=== PATIENT | male | born 1950 | race Caucasian/White ===

== ENCOUNTER 2021-01-19 06:38 | Outpatient (RCR) | payer MEDICARE, OTHER, SELFPAY | END 2021-01-19 23:59 | LOC: IMMUN 06:38 | PROVIDERS: PCP Family Medicine; Referring Provider Family Medicine; Visit Provider Family Medicine | DX: Z23 Encounter for immunization (principal) | CPT/HCPCS: 0011A; 0012A ==

== ENCOUNTER 2021-02-18 17:57 | Emergency (ER) | payer MEDICARE, OTHER, SELFPAY ==
[2021-02-18 17:59] VITALS: BP 181/63; PULSE 78; RESP 18; TEMP 36.3; O2SAT 96; BMI 75.0
[2021-02-18 18:01] VITALS: BP 181/63; PULSE 78; RESP 18; TEMP 36.3; O2SAT 96
--- NOTE | 2021-02-18 18:15 | CT_ITS ---
STUDY: CT ABDOMEN AND PELVIS WITHOUT CONTRAST REASON FOR EXAM: Male, 70 years old. Hematuria RADIATION DOSAGE (If Supplied By Facility): CTDIvol = ( 18.99 ) mGy, DLP = ( 915.70 ) mGycm TECHNIQUE: Transaxial images were obtained from the dome of the diaphragm to the symphysis pubis without oral contrast, and without intravenous contrast. Sagittal and coronal images were reconstructed. Individualized dose optimization techniques were used for this CT. COMPARISON: None. FINDINGS: The visualized lung bases are unremarkable. The visualized portions of the heart are within normal limits. Normal liver. Normal gallbladder and extrahepatic biliary system. Normal spleen. Normal pancreas. Normal bilateral adrenal glands. Normal right kidney. Multiple nonobstructing uroliths in the left renal calyces. These measure up to 7 mm. Normal visualized stomach. Normal small intestine. Colonic diverticulosis. Increased stool throughout the colon. The appendix is visualized and appears normal. Calcified plaque along the aorta and its branches. Possible severe stenosis right renal artery. Normal inferior vena cava. Normal retroperitoneum. Normal urinary bladder. Bilateral fat-containing inguinal hernias. Normal abdominal wall. Slight anterior wedging T11, T12 and L1. IMPRESSION: Multiple Nonobstructing nephroliths on the left. Multiple mild compression fractures as above, age indeterminate. Electronically Signed: Montana Perry MD at 19:37 EDT , Service support , CT/Abdomen/Pelvis without Cont
--- NOTE | 2021-02-18 18:17 | ED.VISSUMM ---
- ER Visit Summary Date of Service: 02/18/21 Chief Complaint: Hematuria History of Present Illness: The patient is a 70 M who presents with hematuria that began today. Patient states he has a history of kidney stones. Patient states he was told he had 9 kidney stones in the past. Patient states today he noted some blood in his urine. Patient states it has been constant all day. Patient states he did get his second Covid vaccine 2 days ago. Patient states he has been having some body aches with this. Patient also admits to mild headache. Patient denies any dysuria. Patient admits to subjective chills but denies any fevers. Patient denies any nausea or vomiting. Physical Examination: Vital signs are stable. Patient is afebrile. Patient is in no acute distress. Oral mucosa is pink and moist. Neck is supple. Trachea is midline. There is no JVD noted. Heart was regular rate and rhythm. Lungs are clear and equal bilaterally. Abdomen is soft. Bowel sounds are normal. There is no tenderness. There is no rebound or guarding noted. There is no CVA tenderness noted. Skin is warm dry. Cranial nerves II through XII are intact. There are no focal motor or sensory deficits noted. Extremities are intact. There is no calf tenderness or edema. Test Results: CBC was within normal limits. Comprehensive metabolic profile showed a slightly elevated glucose of 140. Total bilirubin was slightly elevated at 1.1. Urinalysis showed occult blood of 250 with greater than 100 red blood cells. There were no white blood cells noted. CT scan of the abdomen pelvis was obtained. There are multiple stones in the left kidney. There is no obstruction. There is no mass. This was interpreted by the radiologist and reviewed by myself. Emergency Department Course and Treatment: Patient was given IV fluids. Patient did not require any analgesia or antiemetics. Patient was resting comfortably on reevaluation. Patient was advised of his findings. Patient was given a referral to Dr. Henderson. Patient will arrange to follow up with him in the office. Patient was instructed to take Tylenol as needed for pain. Patient was instructed return if worse in any way. Patient understood and was agreeable with the plan. All questions were answered. Disposition: Discharge home Impression: 1. Hematuria This note was generated with [employer] dictation software. It may contain incorrect words, spelling, and punctuation that were not noted in review of the chart prior to signing ED Disposition - Plan for ED Patient: Disposition: Home or Assisted Living Diagnosis: Hematuria Instructions: ED Hematuria Referrals: Sonny Duncan MD [Primary Care Provider] - 5-7 Days Randal Henderson MD [STAFF PHYSICIAN] - 5-7 Days
[2021-02-18 18:29] LABS: Mucous, Urine 0 SEEN /hpf (<or=2+); Squamous Epithelial Cells - UA 0 SEEN /hpf (0-5); White Blood Cells 0 SEEN /hpf (0-5)
[2021-02-18] MEDS: 0.9% Normal Saline 1,000 ML 1000 ML IV (18:29)
[2021-02-18 18:35] LABS: Color, Urine Red (Yellow); Glucose, Dipstick Normal (Normal); Ketone-Dipstick 5 mg/dl (Negative); Leukocyte Esterase-Dipstick Negative /ul (Negative); Nitrite-Dipstick Negative (Negative); Occult Blood-Urine 250 /ul (Negative); Protein-Dipstick 100 mg/dl (Negative); Urine Bilirubin Dipstick Negative (Negative); Urine Clarity Cloudy (Clear); Urine Urobilinogen Normal (Normal); Urine pH 6.5 (5.0 - 8.0)
[2021-02-18 18:38] LABS: Absolute Lymphocyte Count 1.54 X10^3/uL (0.83-4.51); Absolute Neutrophil Count 3.5 X10^3/uL (2.0-7.7); Basophil# 0.03 X10^3/uL; Basophil% 0.5 % (0-1); Eosinophil# 0.16 X10^3/uL; Eosinophils% 2.7 % (0-5); Hematocrit 43.5 % (40-54); Hemoglobin 14.4 g/dL (13.0-16.5); Lymphocyte # 1.54 X10^3/ul (4.0); Lymphocyte % 26.2 % (19-41); Mean Corp Hgb Conc 33.1 g/dL (32-36); Mean Corpuscular Hgb 30.4 pg (27.0-32.0); Mean Platelet Vol. 9.7 fl (6.2-12.0); Monocyte# 0.69 X10^3/uL; Monocyte% 11.7 % (0-10); NRBC Flagged by Analyzer 0 % (0-5); Neutrophil # 3.45 X10^3/uL (2.7-7.7); Neutrophil % 58.7 % (47-70); Platelet Count 190 K/mm3 (150-450); RBC Distribution Width CV 13.2 % (11.6-14.6); RBC Distribution Width SD 45.1 fl (35.1-43.9); Red Blood Count 4.73 M/mm3 (4.6-6.2); White Blood Count 5.9 K/mm3 (4.4-11.0)
[2021-02-18 18:54] LABS: Amorphous Sediment 1+; Bacteria 1+ /hpf (None Seen); Red Blood Cells-Urine > 100 SEEN /hpf (0-5)
[2021-02-18 18:59] LABS: ALB/GLOB Ratio 1.2 RATIO (0.9-2.4); AST(SGOT) 24 U/L (15-37); Alanine Aminotransfer ALT/SGPT 35 U/L (16-61); Albumin, Serum 3.7 g/dL (3.2-5.0); Alkaline Phosphatase 96 U/L (45-117); Anion Gap 4 (5-15); BUN 13 mg/dL (7-18); BUN/Creat Ratio 10.9 RATIO (10-20); Calcium,Total 8.7 mg/dL (8.5-10.1); Chloride 105 mmol/L (98-107); Creatinine, Serum 1.19 mg/dL (0.70-1.30); EST Glomerular Filtration Rate 64 mL/min (>60); Est Glom Filt Rate - Afr Amer 77 mL/min (>60); Estimated Creatinine Clearance 56.11 ml/min; Glucose 140 mg/dL (74-106); Protein, Total 6.7 g/dL (6.4-8.2); Sodium Level 139 mmol/L (136-145)
[2021-02-18 20:17] VITALS: BP 178/90; PULSE 78; RESP 18; O2SAT 96
== END 2021-02-18 20:17 | disposition home or self-care (01) ==
PROVIDERS: Emergency Provider Emergency Medicine; PCP Family Medicine
DX: R31.9 Hematuria, unspecified (principal); N20.0 Calculus of kidney; R51.9 Headache, unspecified; Z87.442 Personal history of urinary calculi
CPT/HCPCS: 74176; 80053; 81001; 85025; 96360; 99283; J7030

== ENCOUNTER 2021-02-19 19:05 | Emergency (ER) | payer MEDICARE, OTHER, SELFPAY ==
[2021-02-18 17:59] VITALS: BMI 75.0
[2021-02-19 19:06] VITALS: BP 201/100; PULSE 76; RESP 18; TEMP 35.4; O2SAT 98; BMI 34.2
[2021-02-19 19:56] LABS: Absolute Lymphocyte Count 1.66 X10^3/uL (0.83-4.51); Absolute Neutrophil Count 3.2 X10^3/uL (2.0-7.7); Basophil# 0.02 X10^3/uL; Basophil% 0.3 % (0-1); Eosinophil# 0.18 X10^3/uL; Eosinophils% 3.1 % (0-5); Hematocrit 42.9 % (40-54); Hemoglobin 13.9 g/dL (13.0-16.5); Lymphocyte # 1.66 X10^3/ul (4.0); Lymphocyte % 28.9 % (19-41); Mean Corp Hgb Conc 32.4 g/dL (32-36); Mean Corpuscular Volume 92.7 fL (80-94); Mean Platelet Vol. 9.7 fl (6.2-12.0); Monocyte# 0.64 X10^3/uL; Monocyte% 11.1 % (0-10); NRBC Flagged by Analyzer 0 % (0-5); Neutrophil # 3.23 X10^3/uL (2.7-7.7); Neutrophil % 56.4 % (47-70); Platelet Count 201 K/mm3 (150-450); RBC Distribution Width CV 13.2 % (11.6-14.6); RBC Distribution Width SD 45.1 fl (35.1-43.9); Red Blood Count 4.63 M/mm3 (4.6-6.2); White Blood Count 5.7 K/mm3 (4.4-11.0)
[2021-02-19 19:59] LABS: International Normalized Ratio 0.9; Partial Thromboplast Time 25.3 Seconds (24.1-36.2)
[2021-02-19 20:14] LABS: Erythrocyte Sedimentation Rate 9 mm/hr (0-20)
[2021-02-19 20:16] LABS: AST(SGOT) 25 U/L (15-37); Alanine Aminotransfer ALT/SGPT 37 U/L (16-61); Albumin, Serum 3.2 g/dL (3.2-5.0); Alkaline Phosphatase 108 U/L (45-117); Anion Gap 4 (5-15); BUN 11 mg/dL (7-18); BUN/Creat Ratio 9.9 RATIO (10-20); CRP 7.02 mg/L (0.0-3.0); Calcium,Total 8.2 mg/dL (8.5-10.1); Chloride 106 mmol/L (98-107); Creatinine, Serum 1.11 mg/dL (0.70-1.30); EST Glomerular Filtration Rate 69 mL/min (>60); Est Glom Filt Rate - Afr Amer 84 mL/min (>60); Globulin 3.1 g/dL (2.2-4.2); Glucose 134 mg/dL (74-106); Potassium 3.9 mmol/L (3.5-5.1); Protein, Total 6.3 g/dL (6.4-8.2); Sodium Level 138 mmol/L (136-145)
--- NOTE | 2021-02-19 20:39 | ED.DCSUM_ITS ---
- ER Visit Summary Date of Service: 02/19/21 Chief Complaint: Rash History of Present Illness: The patient is a 70 M presents for a rash in his lower extremities. This involves his shins. He never had this before. Noticed it yesterday. Associated with redness and warmth. He had some chills. Of note, the patient was seen yesterday for hematuria. He had a work-up including CT which was largely unremarkable. He was referred for follow-up as an outpatient with urology. Patient has a history of coronary disease, hypertension, hyperlipidemia. Physical Examination: Blood pressure 201/100. Otherwise vitals unremarkable. Heart regular rate and rhythm. Lungs clear. Abdomen soft and nontender. No masses. Lower extremities show erythema and warmth over his bilateral shins, this is blanching. Skin is intact. He is neurovascular intact distally. Calves are soft and supple. Test Results: CBC unremarkable. Glucose 134, calcium 8.2. Coags normal. CRP 7, ESR 9. Emergency Department Course and Treatment: Patient had a recent COVID-19 injection. He was having urinary bleeding and a rash. This is not typical for ITP. His platelets were normal. I also considered a vasculitis. His CRP was elevated but his ESR was normal. White count was normal. The rest of his exam is unremarkable. Also considered cellulitis. Will cover him with Bactrim and Keflex. He will follow up with urology next week. Return for spreading rash, or any other new symptoms. Nothing to suggest DVT. Calves are soft and supple. The pattern of skin changes are not consistent with a DVT. His pulses are strong and equal. No neurologic symptoms. His abdomen is soft. He had a CT. Prior evaluation for AAA. No aneurysm history. I am not sure what would link his hematuria and his rash, or if they are even related. Follow-up with urology and follow-up with primary care. Return if worse. Treatment Plan: As above Disposition: Discharge Impression: Bilateral leg rash This note was generated with [employer] dictation software. It may contain incorrect words, spelling, and punctuation that were not noted in review of the chart prior to signing ED Disposition - Plan for ED Patient: Referrals: Sonny Duncan MD [Primary Care Provider] -
--- NOTE | 2021-02-19 20:42 | ED.DEP ---
ED Disposition - Plan for ED Patient: Instructions: ED Erythema Prescriptions: Smz/Tmp Ds [Bactrim Ds] 1 tablet PO BID #14 tab Prescription Printed Cephalexin [Keflex] 500 mg PO Q6 7 Days #28 capsule Prescription Printed Referrals: Sonny Duncan MD [Primary Care Provider] -
[2021-02-19] MEDS: Smz/Tmp Ds Tablet 1 TABLET PO (20:57)
[2021-02-19] MEDS: Cephalexin 250 MG Capsule 500 MG PO (20:57)
[2021-02-19 20:59] VITALS: RESP 16
== END 2021-02-19 21:00 | disposition home or self-care (01) ==
LOC: ED 20:02
PROVIDERS: Emergency Provider Emergency Medicine; PCP Family Medicine
DX: R21 Rash and other nonspecific skin eruption (principal); I25.10 Atherosclerotic heart disease of native coronary artery without angina pectoris; I10 Essential (primary) hypertension; E78.5 Hyperlipidemia, unspecified; R31.9 Hematuria, unspecified
CPT/HCPCS: 80053; 85025; 85610; 85652; 85730; 86140; 99284; A4216

== ENCOUNTER 2021-03-13 10:16 | Day surgery (SDC) | payer MEDICARE, OTHER, SELFPAY ==
--- NOTE | 2021-03-06 10:29 | NURSING ---
pt states he received the second Moderna Vaccin on 02/16/21.
[2021-03-13] VITALS (7 sets, daily range): BP systolic 139–174; BP diastolic 72–79; PULSE 55–59; RESP 16; TEMP 36.1–36.4; O2SAT 96–100; BMI 34.2
--- NOTE | 2021-03-13 10:25 | RAD_ITS ---
INDICATION: preop EXAMINATION/TECHNIQUE: X-RAY - XR Abdomen 1 View COMPARISON: None FINDINGS: BOWEL GAS PATTERN: Non-obstructive. No bowel or stomach distention. FREE AIR: Not assessed on a single supine view. ORGANOMEGALY: Not seen. CALCIFICATIONS: Multiple large calcifications overlie the left kidney, largest of which measures 1 cm. LOWER CHEST: No acute pathology. BONES AND SOFT TISSUES: No acute pathology. RAD/Abdomen Single View IMPRESSION: Multiple large calcifications overlie the left kidney, largest of which measures 1 cm. Electronically Signed: King Clayton MD at 17:13 EDT Tel , Service support ,
[2021-03-13] MEDS: Lactated Ringers 1,000 ML 100 ML IV (11:24)
[2021-03-13] MEDS: Cefazolin 2 GM in 0.9% Normal Saline 100 ML IV (12:23)
--- NOTE | 2021-03-13 13:03 | PCM.HP.STD ---
History of Present Illness Date of Admission: 03/13/21 Chief Complaint: Multiple left renal calculi The patient is a 70 year old male with multiple left renal calculi presents for treatment and stent placement Past Medical History Past Medical History (Chronic Problems): Chronic Problems HLD (hyperlipidemia) (Chronic) CAD (coronary artery disease) (Chronic) Benign essential hypertension (Chronic) Allergies No Known Allergies Allergy (Verified 03/13/21 10:50) Home Medications: Ambulatory Orders Medication Instructions Recorded Allopurinol [Zyloprim] 300 mg PO DAILY 03/06/21 Aspirin [Aspirin, Baby] 162 mg PO DAILY@0800 03/06/21 Atorvastatin Calcium 40 mg PO QHS 03/06/21 Cholecalciferol (Vitamin D3) 2,000 unit PO DAILY 03/06/21 [Vitamin D3] Clopidogrel Bisulfate [Clopidogrel] 75 mg PO DAILY 03/06/21 Lisinopril 10 mg PO DAILY 03/06/21 Metoprolol Tartrate 50 mg PO BID 03/06/21 Multivitamin 1 each PO DAILY 03/06/21 [place]-3 Fatty Acids/Fish Oil [Fish 1 each PO DAILY 03/06/21 Oil 1,000 mg Capsule] Ciprofloxacin [Cipro] 500 mg PO BID #6 tab 03/13/21 Hydrocodone Bitart/Apap 5-325 1 tablet PO Q4H PRN PRN 7 Days #20 03/13/21 [[place] 5MG-325MG] tablet Surgical History: coronary bypass surgery Smoking Status: Former smoker Review of Systems Constitutional: Denies: Chills, Fever, Weight Change HEENT: Denies: Head Aches, Sinus Congestion, Sinus Drainage Cardiovascular: Denies: Chest Pain, Palpitations Respiratory: Denies: Cough, Shortness of breath at rest, Sputum production Gastrointestinal: Denies: Abdominal Pain, Nausea, Vomiting Genitourinary: Denies: Dysuria Musculoskeletal: Denies: Joint Pain, Joint Tenderness Skin: Denies: Rash, Wounds Neurological: Denies: Numbness, Tingling, Focal weakness Psychiatric: Denies: Anxiety, Depression, Homicidal Ideations, Suicidal Ideations Hematologic/ Lymphatic: Denies: Easy Bruising, Easy Bleeding VTE Information - Inpt Only VTE Present on Admission: No - Physical Exam Vitals/I&O's: Vital Signs Temp Pulse Resp BP Pulse Ox 97.6 F L 57 L 16 158/75 H 98 03/13/21 10:56 03/13/21 10:56 03/13/21 10:56 03/13/21 10:56 03/13/21 10:56 Oxygen Delivery Method Room Air Weight: 102.058 kg Body Mass Index (BMI) 34.2 General: Alert, Oriented x3, Cooperative HEENT: Atraumatic, PERRLA, EOMI, Normocephalic Neck: Supple, No JVD, Negative Carotid Bruits Lungs: Clear to auscultation, Normal air movement Cardiovascular: Regular rate, No murmurs Abdomen: Bowel Sounds Present, Soft, Non Tender Extremities: No edema, Capillary Refill Less than 3 Seconds Skin: No rashes, No breakdown Musculoskeletal: No Tenderness to Palpation of Joints or Extremities Neurological: Cranial nerves II-XII grossly intact Psych/Mental Status: Normal Affect, Appropriate Current Medications Acetaminophen (Acetaminophen 325 Mg Tablet) 650 mg PO Q4H PRN PRN PRN Reason: Pain Score 1-5 Cefazolin Sodium 2 gm/ Sodium (Chloride) 110 mls @ 150 mls/hr IV PREOP ONE Stop: 03/13/21 13:08 Last Admin: 03/13/21 12:23 Dose: 150 mls/hr Documented by: Lactated Ringer's () 1,000 mls @ 100 mls/hr IV .Q10H [facility] Last Admin: 03/13/21 11:24 Dose: 100 mls/hr Documented by: Lactated Ringer's () 1,000 mls @ 100 mls/hr IV .Q10H [facility] Ketorolac Tromethamine (Ketorolac 15 Mg/Ml Vial) 15 mg IV X1 ONE Stop: 03/13/21 13:01 Metoclopramide HCl (Metoclopramide 10 Mg/2 Ml Vial) 10 mg IV X1 PRN PRN Reason: NAUSEA/VOMITING Ondansetron HCl (Ondansetron 4 Mg/2 Ml Vial) 4 mg IV X1 PRN PRN Reason: NAUSEA Oxycodone HCl (Oxycodone 5 Mg Tablet) 5 - 10 mg PO Q6H PRN PRN PRN Reason: Pain Score 4-10 Assessment/Plan Plan to proceed with shockwave lithotripsy and stent placement
--- NOTE | 2021-03-13 13:04 | DCINST_ITS ---
Discharge Diet: Light diet - advance as tolerated Discharge Activity: Return to Normal Activity Allergies/Adverse Reactions: Allergies No Known Allergies Allergy (Verified 03/13/21 10:50) Medications to take at Discharge Allopurinol [Zyloprim] 300 mg PO DAILY 03/06/21 Aspirin [Aspirin, Baby] 162 mg PO DAILY@0800 03/06/21 Atorvastatin Calcium 40 mg PO QHS 03/06/21 Cholecalciferol (Vitamin D3) [Vitamin D3] 2,000 unit PO DAILY 03/06/21 Clopidogrel Bisulfate [Clopidogrel] 75 mg PO DAILY 03/06/21 Lisinopril 10 mg PO DAILY 03/06/21 Metoprolol Tartrate 50 mg PO BID 03/06/21 Multivitamin 1 each PO DAILY 03/06/21 [place]-3 Fatty Acids/Fish Oil [Fish Oil 1,000 mg Capsule] 1 each PO DAILY 03/06/21 Ciprofloxacin [Cipro] 500 mg PO BID #6 tab 03/13/21 Hydrocodone Bitart/Apap 5-325 [[place] 5MG-325MG] 1 tablet PO Q4H PRN PRN 7 Days #20 tablet 03/13/21 The following prescriptions were given: Ciprofloxacin [Cipro] 500 mg PO BID #6 tab Transmission Status: Pending to [facility] Hydrocodone Bitart/Apap 5-325 [[place] 5MG-325MG] 1 tablet PO Q4H PRN PRN 7 Days #20 tablet PRN Reason: Pain Transmission Status: Sent to [facility] Orders to be completed after discharge: Abdomen Single View [RAD] Time Frame: 03/13/21, Facility: [facility], Location: [facility] Primary Care Physician: Sonny Duncan MD [Primary Care Provider] - Test Results: Test results from this visit will be discussed in further detail at your follow- up appointment, if applicable. Please Follow Up With: Randal Henderson MD When: please call to make an appointment.
--- NOTE | 2021-03-13 13:05 | PCM.OPRPT ---
Report of Operation Date of Procedure: 03/13/21 Pre-Operative Diagnosis: Multiple left renal calculi Post-Operative Diagnosis: Same Surgery/Procedure Performed:: cysto left stent and left ESWL, 1st stage procedure. Description of Surgical Findings:: Patient presents to the hospital for treatment of a kidney stone with shockwave lithotripsy. In the preoperative area and x-ray was done to confirm the location of the stone. The x-ray was reviewed and the stone location was reviewed. In the preoperative setting I spoke with the patient regarding the treatment of the stone how the treatment would be conducted and the expectations after surgery. The patient understands there is a risk of bleeding and infection. Also discussed the very rare risk of hematoma or damage to the kidney. We also discussed the risk that the shockwave machine will fail to break the stone adequately and that the patient may need other surgical procedures. We also discussed the possibility that the patient may need a stent after the procedure. After reviewing the procedure with the patient, the patient is signed the consent form all the patient's questions were addressed and was taken back to the operating room for treatment of a kidney stone. Patient was taken back to the operating room, patient was identified by the nursing staff, we identified the side of the treatment and the patient side of treatment had been marked by my initials. The patient underwent general anesthetic and was placed supine on the lithotripter table. We then used fluoroscopy to identify the stone on the left side. The urethra and genitals were prepped and draped in usual sterile fashion. Using a 21 [place] rigid cystourethroscope the entire length of the urethra was normal then went into the bladder. Identified the trigone the left and right ureteral orifice. I then cannulated the left orifice with an angle tip glide wire and advanced a wire up into the kidney. I then backloaded a 5 [place] open ended catheter over the wire and injected contrast to delineate the anatomy. After the retrograde was performed I then used fluoroscopic images and guidance to advanced a wire up into the kidney and over the 0.038 glidewire I advanced a 6 [place] by 26 cm double pigtail stent. I then pulled the 0.038 Glidewire off and the stent coiled in the kidney bladder good position. The bladder was then drained. We confirmed the position of the stent by fluoroscopy. We then positioned the patient under the lithotripter and we used triangulation technique to identify the location of the stone and then we made sure that the stone was engaged in the F2 focal point of F2 Donier lithoprior machine. Once the patient was positioned appropriately and the stone was identified and placed in the F2 focal point of the lithotripter machine we then proceeded with shockwave lithotripsy. In the beginning the shockwave was delivered at a rate of 90 shocks per minute, we monitor the EKG for any ectopy. The power was slowly increased to 5 kV and subsequently at the 7 kV. We then proceeded with the treatment we move the therapy had around during the treatment to make sure the stone stayed in the F2 focal point during the entire treatment. Once the stone had broken up completely then we stopped the treatment a total of about 3000 shockwaves were delivered to the stone under fluoroscopic guidance. At this point the patient's anesthetic was reversed patient was extubated and taken back to the PACU in stable condition. The patient was given instructions to call the office to make an a follow-up appointment. . Type of Anesthesia:: General Drains: stent left side - Admit VTE Documentation VTE Present on Admission: No VTE Mechan Device Prophylaxis: SCD's
== END 2021-03-13 14:52 | disposition home or self-care (01) ==
LOC: SDC 10:17 → AC 10:20
PROVIDERS: PCP Family Medicine; Referring Provider Urology; Visit Provider Urology
PROC: (CPT 50590; principal; 2021-03-13 12:15)
DX: N20.0 Calculus of kidney (principal); R31.0 Gross hematuria; E78.5 Hyperlipidemia, unspecified; I25.10 Atherosclerotic heart disease of native coronary artery without angina pectoris; I10 Essential (primary) hypertension; Z79.82 Long term (current) use of aspirin; Z95.1 Presence of aortocoronary bypass graft; Z87.891 Personal history of nicotine dependence; Z87.442 Personal history of urinary calculi
CPT/HCPCS: 00873; 50590; 52332; 74018; J7120; C1769; C2617

== ENCOUNTER → 2021-03-19 10:21 | Outpatient (CLI) | payer MEDICARE, OTHER, SELFPAY ==
[2021-03-13 10:56] VITALS: BMI 34.2
--- NOTE | 2021-03-19 10:24 | RAD_ITS ---
STUDY: X-RAY - ABDOMEN/PELVIS REASON FOR EXAM: Male, 70 years old. CALCULUS OF KIDNEY TECHNIQUE: Single AP view of the abdomen / pelvis. COMPARISON: Comparison is made with prior study dated 03/13/2021. FINDINGS: There is a moderate amount of colonic fecal material. A left-sided double J stent catheter as been placed with the proximal tip in the region of the left renal pelvis and distal tip in the bladder. Residual left intrarenal calculi are seen although they are fragmented at this time. Normal soft tissue structures. There are degenerative changes of the visualized lumbar spine. RAD/Abdomen Single View IMPRESSION: Status post left double-J stent catheter insertion. Residual left intrarenal calculi although these have decreased in size and fragmented at this time. Electronically Signed: Hernando Medley MD at 11:04 EDT , Service support ,
[2021-03-19 12:25] LABS: Hematocrit 44.7 % (40-54); Hemoglobin 14.7 g/dL (13.0-16.5); Mean Corp Hgb Conc 32.9 g/dL (32-36); Mean Corpuscular Hgb 30.6 pg (27.0-32.0); Mean Corpuscular Volume 93.1 fL (80-94); Mean Platelet Vol. 9.9 fl (6.2-12.0); Platelet Count 247 K/mm3 (150-450); RBC Distribution Width CV 13.2 % (11.6-14.6); RBC Distribution Width SD 45.3 fl (35.1-43.9); White Blood Count 7.7 K/mm3 (4.4-11.0)
[2021-03-19 12:47] LABS: Anion Gap 5 (5-15); BUN 15 mg/dL (7-18); BUN/Creat Ratio 13.8 RATIO (10-20); Calcium,Total 8.8 mg/dL (8.5-10.1); Chloride 106 mmol/L (98-107); Creatinine, Serum 1.09 mg/dL (0.70-1.30); EST Glomerular Filtration Rate 71 mL/min (>60); Est Glom Filt Rate - Afr Amer 86 mL/min (>60); Glucose 90 mg/dL (74-106); Potassium 4.5 mmol/L (3.5-5.1); Sodium Level 139 mmol/L (136-145)
== END ==
PROVIDERS: PCP Family Medicine; Referring Provider Urology; Visit Provider Urology
DX: Z01.812 Encounter for preprocedural laboratory examination (principal); N20.0 Calculus of kidney
CPT/HCPCS: 36415; 74018; 80048; 85027

== ENCOUNTER → 2021-03-20 14:51 | Outpatient (CLI) | payer MEDICARE, OTHER, SELFPAY ==
[2021-03-13 10:56] VITALS: BMI 34.2
== END ==
PROVIDERS: PCP Family Medicine; Referring Provider Urology; Visit Provider Urology
DX: Z03.818 Encounter for observation for suspected exposure to other biological agents ruled out (principal)
CPT/HCPCS: 87635; C9803; U0002

== ENCOUNTER → 2021-03-24 13:24 | Outpatient (CLI) | payer MEDICARE, OTHER, SELFPAY ==
[2021-03-13 10:56] VITALS: BMI 34.2
--- NOTE | 2021-03-24 13:26 | EKG12_ITS ---
Test Reason : PRE OP Blood Pressure : / mmHG Vent. Rate : 061 BPM Atrial Rate : 061 BPM P-R Int : 170 ms QRS Dur : 104 ms QT Int : 400 ms P-R-T Axes : 065 029 045 degrees QTc Int : 402 ms Normal sinus rhythm Incomplete right bundle branch block Confirmed by BIN LAY, MARITZA ([id number]), copy editor FANI RON ([id number]) on 03/25/2021 9:57:09 AM Referred By: Randal Henderson Confirmed By:RAHEEM STEWARD MD
== END ==
PROVIDERS: PCP Family Medicine; Referring Provider Urology; Visit Provider Urology
DX: Z01.812 Encounter for preprocedural laboratory examination (principal); I10 Essential (primary) hypertension
CPT/HCPCS: 93005

== ENCOUNTER 2021-03-28 15:23 | Observation (INO) | payer OTHER, MEDICARE, SELFPAY ==
[2021-03-13 10:56] VITALS: BMI 34.2
[2021-03-28] VITALS (7 sets, daily range): BP systolic 154–185; BP diastolic 74–96; PULSE 80–96; RESP 15–18; TEMP 36.9–37.2; O2SAT 93–96; BMI 34.4; BMI 34.0
--- NOTE | 2021-03-28 15:43 | EX.ED.DYSGE1 ---
HPI History of Present Illness Chief Complaint: Flank Pain Informant: patient Onset/Context/Timing Onset: Yesterday Context: Gradual Onset Timing: Waxes and wanes Current Severity: Moderate Maximum Severity: Severe Narrative Narrative: Patient presents secondary to left flank pain. He had lithotripsy and stent placed on March 13 here at the hospital. He states he had repeat lithotripsy performed yesterday at the surgery center in [facility]. Both procedures were performed by Dr. Henderson. Patient states he has had increased left flank pain as well as pain from a Avalos catheter that was left in him after yesterday's procedure. He states his blood pressure has been elevated since he was discharged yesterday. He did take Aleve earlier today. He has not taken any narcotics for pain since yesterday. [facility] Medical History Kidney stones Myocardial infarct Home Medications allopurinol 300 mg PO DAILY 03/06/21 [History Last Taken Unknown] aspirin 162 mg PO DAILY@0800 03/06/21 [History Last Taken 03/06/21 08:00] atorvastatin 40 mg PO QHS 03/06/21 [History Last Taken Unknown] cholecalciferol (vitamin D3) 2,000 unit PO DAILY 03/06/21 [History Last Taken Unknown] clopidogrel 75 mg PO DAILY 03/06/21 [History Last Taken 03/06/21 08:00] lisinopril 10 mg PO DAILY 03/06/21 [History Last Taken 03/13/21] metoprolol tartrate 50 mg PO BID 03/06/21 [History Last Taken 03/13/21] multivitamin 1 each PO DAILY 03/06/21 [History Last Taken Unknown] omega-3 fatty acids-fish oil 1 each PO DAILY 03/06/21 [History Last Taken Unknown] ciprofloxacin HCl 500 mg PO BID #6 tab 03/13/21 [Rx Last Taken Unknown] Allergy/AdvReac Type Severity Reaction Status Date / Time No Known Allergies Allergy Verified 03/28/21 15:35 Surgical History History of lithotripsy Hx of CABG Social History Smoking Status: Former smoker ROS ROS ED Constitutional Constitutional ED: Denies chills or fever(s) Eyes Eyes: Denies change in vision ENT ENT ED: Denies sore throat Cardiovascular Cardiovascular: Denies chest pain Respiratory/Chest Respiratory/Chest: Denies cough or dyspnea Gastrointestinal Gastrointestinal: Reports abdominal pain and other Details: Left flank pain ; Denies diarrhea, nausea or vomiting Genitourinary Genitourinary ED: Reports other Details: Avalos catheter in place ; Denies dysuria Musculoskeletal Musculoskeletal: Reports back pain Integumentary Denies rash Neurologic Neurologic: Denies headache(s) or weakness Psychiatric Psychiatric: Denies anxiety or depression Endocrine Endocrinology: Denies polydipsia or polyuria Allergic/Immunologic Allergic/Immunologic ED: Denies urticaria EXAM Physical Exam Const Vital Signs: 03/28/21 15:24 03/28/21 17:47 Temperature 98.5 F Temperature Source Temporal Pulse Rate 90 80 Respiratory Rate 15 18 Blood Pressure 172/96 H 177/74 H Blood Pressure Mean 121 108 Pulse Ox 96 96 Oxygen Delivery Method Room Air Room Air Positive well nourished and well developed General Appearance ED: well developed HEENT Reports normocephalic and head/scalp atraumatic Eyes PERRL and EOMs intact bilaterally Neck supple Chest Wall inspection of chest normal and palpation of chest normal Resp normal respiratory effort and clear to auscultation bilaterally Cardio regular rate and regular rhythm GI normal to inspection, nondistended, normoactive bowel sounds Palpation: soft Back/Spine General Back: CVA tenderness left Extremity normal to inspection Neuro oriented x3 and no sensory deficits noted Sensorium / Orientation: alert Motor Exam: strength 5/5 throughout Psych mental status grossly normal Skin no rashes or lesions noted MDM MDM MDM Narrative Medical decision making narrative: Patient was given 15 mg of Toradol, 4 mg of morphine, and 4 mg of Zofran along with IV fluids. Lab Data Attestation: I reviewed the patient's lab results. Labs: Laboratory Results - last 24 hr 03/28/21 03/28/21 15:30 15:30 WBC 16.7 H RBC 4.56 L Hgb 13.9 Hct 42.0 MCV 92.1 MCH 30.5 MCHC 33.1 RDW Std Deviation 45.1 H RDW Coeff of Demar 13.3 Plt Count 261 MPV 9.5 Immature Gran % (Auto) 0.500 Neut % (Auto) 78.9 H Lymph % (Auto) 10.2 L [place] % (Auto) 10.1 H Eos % (Auto) 0.1 Baso % (Auto) 0.2 Absolute Neuts (auto) 13.2 H Absolute Lymphs (auto) 1.71 Nucleated RBC % 0 Differential Comment SCANNED Diff Path Review May foll Sodium 138 Potassium 4.5 Chloride 108 H Carbon Dioxide 25.0 Anion Gap 5 BUN 24 H Creatinine 2.04 H Estim Creat Clear Calc 31.67 Est GFR (MDRD) Af Amer 42 L Est GFR (MDRD) Non-Af 34 L BUN/Creatinine Ratio 11.8 Glucose 117 H Calcium 8.8 Radiography Diagnostic Testing: Radiology Impression Abdomen/Pelvis CT 03/28/21 16:38 IMPRESSION: Mild to moderate left hydronephrosis with high density material in the left extrarenal pelvis, most likely blood clot. There are postsurgical changes status post left double-J NU stent placement which appears to be in good positioning. Multiple left-sided nonobstructive calculi, largest measuring 1.3 cm. Electronically Signed: King Clayton MD at 17:34 EDT Tel , Service support , Treatment and Re-Evaluation Comments:: On repeat evaluation patient's pain is improving. Blood work does reveal leukocytosis with a white count of 16,000 and creatinine that has doubled in the past [address] scan is obtained. Dr. Henderson reviewed the patient's lab work as well as his CT findings. He does feel the patient bled in the upper collecting system and has a clot in this area. He does not feel this is an acute surgical issue. He will admit the patient overnight for pain control and close monitoring. Discharge Plan Triage Chief Complaint: Flank Pain ED Provider: Ainsley Alvarado Dx/Rx/DC Orders Clinical Impression: Post-op pain, Acute renal insufficiency Prescriptions: No Action multivitamin 1 EACH tablet 1 each PO DAILY RF: 0 atorvastatin 80 MG tablet 40 mg PO QHS RF: 0 clopidogrel 75 MG tablet 75 mg PO DAILY RF: 0 lisinopril 10 MG tablet 10 mg PO DAILY RF: 0 metoprolol tartrate 50 MG tablet 50 mg PO BID RF: 0 aspirin 81 MG tablet,chewable 162 mg PO DAILY@0800 RF: 0 allopurinol 300 MG tablet 300 mg PO DAILY RF: 0 omega-3 fatty acids-fish oil 1 EACH capsule 1 each PO DAILY RF: 0 cholecalciferol (vitamin D3) 2,000 UNIT capsule 2,000 unit PO DAILY RF: 0 ciprofloxacin HCl 500 MG tablet 500 mg PO BID Qty: 6 RF: 0 Primary Care Provider: Sonny Duncan Referrals: Sonny Duncan MD [Primary Care Provider] - Disposition Disposition: Acute Care Hospital [facility]
[2021-03-28] MEDS: Ondansetron 4 MG/2 ML Vial IV (15:52)
[2021-03-28] MEDS: Morphine 4 MG/ML Syringe IV (15:54)
[2021-03-28 15:57] LABS: Absolute Lymphocyte Count 1.71 X10^3/uL (0.83-4.51); Absolute Neutrophil Count 13.2 X10^3/uL (2.0-7.7); Basophil# 0.03 X10^3/uL; Basophil% 0.2 % (0-1); Eosinophil# 0.01 X10^3/uL; Eosinophils% 0.1 % (0-5); Hemoglobin 13.9 g/dL (13.0-16.5); Lymphocyte # 1.71 X10^3/ul (0.83-4.51); Lymphocyte % 10.2 % (19-41); Mean Corp Hgb Conc 33.1 g/dL (32-36); Mean Corpuscular Hgb 30.5 pg (27.0-32.0); Mean Corpuscular Volume 92.1 fL (80-94); Mean Platelet Vol. 9.5 fl (6.2-12.0); Monocyte# 1.69 X10^3/uL; Monocyte% 10.1 % (0-10); NRBC Flagged by Analyzer 0 % (0-5); Neutrophil # 13.18 X10^3/uL (2.7-7.7); Neutrophil % 78.9 % (47-70); POSITIVE DIFFERENTIAL YES; Platelet Count 261 K/mm3 (150-450); RBC Distribution Width CV 13.3 % (11.6-14.6); RBC Distribution Width SD 45.1 fl (35.1-43.9); Red Blood Count 4.56 M/mm3 (4.6-6.2); White Blood Count 16.7 K/mm3 (4.4-11.0)
[2021-03-28] MEDS: Ketorolac 15 MG/ML Vial IV (15:57)
[2021-03-28 16:09] LABS: Anion Gap 5 (5-15); BUN 24 mg/dL (7-18); BUN/Creat Ratio 11.8 RATIO (10-20); Calcium,Total 8.8 mg/dL (8.5-10.1); Chloride 108 mmol/L (98-107); Creatinine, Serum 2.04 mg/dL (0.70-1.30); EST Glomerular Filtration Rate 34 mL/min (>60); Est Glom Filt Rate - Afr Amer 42 mL/min (>60); Estimated Creatinine Clearance 31.67 ml/min; Glucose 117 mg/dL (74-106); Potassium 4.5 mmol/L (3.5-5.1); Sodium Level 138 mmol/L (136-145)
[2021-03-28 16:18] LABS: Differential Indicated SCAN CRITERIA MET
[2021-03-28 16:37] LABS: Differential Comment SCANNED
--- NOTE | 2021-03-28 16:38 | CT_ITS ---
INDICATION: flank pain EXAMINATION: CT Abdomen And Pelvis W/O Contrast Injection TECHNIQUE: Helically acquired images were obtained of the abdomen and pelvis without the use of IV contrast. A radiation dose optimization technique was used for this scan. Oral contrast: None. COMPARISON: 02/18/2021 FINDINGS: Evaluation of the solid organs and vascular structures is limited without intravenous contrast. Visualized lung bases: Unremarkable Liver: Unremarkable Gallbladder: Unremarkable Spleen: Unremarkable Pancreas: Unremarkable Adrenal Glands: Unremarkable Kidneys: Interval placement of a left sided double-J nephroureteral stents which appears to be in good positioning. There is perinephric and periureteral fat stranding and multiple foci of free air, most likely postsurgical. There is mild to moderate left hydrocele nephrosis with high density material within an extrarenal pelvis. There are multiple left-sided nonobstructive calculi, largest measuring 1.3 cm. Vasculature: Severe aortoiliac atherosclerotic disease. GI Tract: Unremarkable Lymphadenopathy: None Peritoneum: No ascites. Bladder: HUNTER catheter in place. Reproductive organs: Unremarkable Bones/Soft tissues: Mild chronic compression deformities at T11, T12 and L1. Bilateral fat-containing inguinal hernias. CT/Abdomen/Pelvis without Cont IMPRESSION: Mild to moderate left hydronephrosis with high density material in the left extrarenal pelvis, most likely blood clot. There are postsurgical changes status post left double-J NU stent placement which appears to be in good positioning. Multiple left-sided nonobstructive calculi, largest measuring 1.3 cm. Electronically Signed: King Clayton MD at 17:34 EDT Tel , Service support ,
--- NOTE | 2021-03-28 18:05 | PCM.HP.STD ---
HPI - General HPI Narrative ECTOR HIGHTOWER, is a 70 M who presents to ER with severe pain has h/o of ESWL x 2 and the recently had ureteroscopy and laser of stone fragments. Comes in very painful and CT scan demonstrates a hematoma in the left renal pelvis that has developed and stent in good condition. will admit for manegement. [facility] Medical History Kidney stones Myocardial infarct Home Medications allopurinol 300 mg PO DAILY 03/06/21 [History Last Taken Unknown] aspirin 162 mg PO DAILY@0800 03/06/21 [History Last Taken 03/06/21 08:00] atorvastatin 40 mg PO QHS 03/06/21 [History Last Taken Unknown] cholecalciferol (vitamin D3) 2,000 unit PO DAILY 03/06/21 [History Last Taken Unknown] clopidogrel 75 mg PO DAILY 03/06/21 [History Last Taken 03/06/21 08:00] lisinopril 10 mg PO DAILY 03/06/21 [History Last Taken 03/13/21] metoprolol tartrate 50 mg PO BID 03/06/21 [History Last Taken 03/13/21] multivitamin 1 each PO DAILY 03/06/21 [History Last Taken Unknown] omega-3 fatty acids-fish oil 1 each PO DAILY 03/06/21 [History Last Taken Unknown] ciprofloxacin HCl 500 mg PO BID #6 tab 03/13/21 [Rx Last Taken Unknown] Allergy/AdvReac Type Severity Reaction Status Date / Time No Known Allergies Allergy Verified 03/28/21 15:35 Surgical History History of lithotripsy Hx of CABG Social History Smoking Status: Former smoker ROS Constitutional Constitutional: Denies chills, fever(s) or malaise Eyes Eyes: Denies blurry vision or change in vision ENT HEENT: Reports none Cardiovascular Cardiovascular: Denies chest pain or palpitations Respiratory/Chest Respiratory/Chest: Denies cough or shortness of breath with exertion Gastrointestinal Gastrointestinal: Reports abdominal pain Genitourinary Genitourinary: Reports hematuria Musculoskeletal Musculoskeletal: Denies back pain, joint stiffness or joint swelling Integumentary Integumentary: Denies dry skin, jaundice, lesions or rash Neurologic Neurologic: Denies confusion, syncope or weakness Psychiatric Psychiatric: Reports none; Denies anxiety or depression Endocrine Endocrinology: Denies excessive sweating, fatigue or flushing Hematologic/Lymphatic Hematologic/Lymphatic: Denies anemia, easy bleeding or easy bruising Vital Signs Vital Signs Vital Signs: 03/28/21 15:24 03/28/21 17:47 Temperature 98.5 F Temperature Source Temporal Pulse Rate 90 80 Respiratory Rate 15 18 Blood Pressure 172/96 H 177/74 H Blood Pressure Mean 121 108 Pulse Ox 96 96 Oxygen Delivery Method Room Air Room Air Physical Exam Const alert and oriented x3 General Appearance: cooperative HEENT normocephalic, head/scalp atraumatic, EAC's normal and TM's normal bilaterally Eyes PERRL and EOMs intact bilaterally Pupil: sluggish Neck no lymphadenopathy, supple and no JVD General: trachea midline Lymph Lymphatic: no lymphadenopathy noted, lymphedema and lymphadenopathy Resp normal respiratory effort, normal air movement and clear to auscultation bilaterally Cardio regular rate, regular rhythm and peripheral pulses 2+ throughout GI soft to palpation, non-tender and non-distended Extremity normal capillary refill and no clubbing, cyanosis or edema General Extremity: no tenderness to palpation of joints or extremities Skin no rashes or lesions noted General Skin Exam: turgor normal Lesions: no lesions Rashes: no rashes Neuro CN's II-XII intact bilaterally Speech: speech normal Motor Exam: strength 5/5 throughout; Negative for general weakness Psych thought process normal, cooperative and affect normal Appearance: appropriate Lab / Micro Data Result Diagrams: 03/28/21 15:30 03/28/21 15:30 Labs: Laboratory Results - last 24 hr 03/28/21 03/28/21 15:30 15:30 WBC 16.7 H RBC 4.56 L Hgb 13.9 Hct 42.0 MCV 92.1 MCH 30.5 MCHC 33.1 RDW Std Deviation 45.1 H RDW Coeff of Demar 13.3 Plt Count 261 MPV 9.5 Immature Gran % (Auto) 0.500 Neut % (Auto) 78.9 H Lymph % (Auto) 10.[address] [place] % (Auto) 10.1 H Eos % (Auto) 0.1 Baso % (Auto) 0.2 Absolute Neuts (auto) 13.2 H Absolute Lymphs (auto) 1.71 Nucleated RBC % 0 Differential Comment SCANNED Diff Path Review May foll Sodium 138 Potassium 4.5 Chloride 108 H Carbon Dioxide 25.0 Anion Gap 5 BUN 24 H Creatinine 2.04 H Estim Creat Clear Calc 31.67 Est GFR (MDRD) Af Amer 42 L Est GFR (MDRD) Non-Af 34 L BUN/Creatinine Ratio 11.8 Glucose 117 H Calcium 8.8 Radiology Impression Abdomen/Pelvis CT 03/28/21 16:38 IMPRESSION: Mild to moderate left hydronephrosis with high density material in the left extrarenal pelvis, most likely blood clot. There are postsurgical changes status post left double-J NU stent placement which appears to be in good positioning. Multiple left-sided nonobstructive calculi, largest measuring 1.3 cm. Electronically Signed: King Clayton MD at 17:34 EDT Tel , Service support , Assessment & Plan Assessment/Plan (1) Kidney calculi: PLAN: has a hematoma in renal pelvis with admit for hydration and conservative measures and pain, control at this point I do not think surgical intervention will be needed but serial H H and monitoring. will monitor h/h and kidney funtion. Successful laser stones but has developed a hematoma in renal pelvis which is source of pain. Should resovle on own with bed rest and time. Best option I believe is conservative hydration and time to allow the hematoma to resove on it own will not remove stent for now. Will admit patient for now and see him in am for check up.
[2021-03-28] MEDS: 0.9% Normal Saline 1,000 ML 150 ML IV (20:27)
[2021-03-28] MEDS: Metoprolol Tartrate 50 MG Tablet PO (20:34)
[2021-03-28] MEDS: Atorvastatin Calcium 40 MG Tablet PO (20:34)
[2021-03-28] MEDS: 0.9% Saline Lock 10 ML Syringe IV (20:48)
[2021-03-28] MEDS: Ciprofloxacin 400 MG/200 ML BAG 200 MG IV (20:48)
[2021-03-29] VITALS (8 sets, daily range): BP systolic 137–173; BP diastolic 57–92; PULSE 78–88; RESP 18–20; TEMP 36.8–37.4; O2SAT 92–98
[2021-03-29] MEDS: HYDROcodone Bitartrate/Apap 5/325 Tablet PO ×2 (00:13→06:37)
[2021-03-29] MEDS: 0.9% Normal Saline 1,000 ML 150 ML IV ×2 (02:34→09:17)
[2021-03-29 06:58] LABS: Hematocrit 38.3 % (40-54); Hemoglobin 12.1 g/dL (13.0-16.5); Mean Corp Hgb Conc 31.6 g/dL (32-36); Mean Corpuscular Hgb 30.2 pg (27.0-32.0); Mean Corpuscular Volume 95.5 fL (80-94); Mean Platelet Vol. 10.2 fl (6.2-12.0); Platelet Count 204 K/mm3 (150-450); RBC Distribution Width CV 13.7 % (11.6-14.6); Red Blood Count 4.01 M/mm3 (4.6-6.2); White Blood Count 11.9 K/mm3 (4.4-11.0)
[2021-03-29 07:36] LABS: Anion Gap 5 (5-15); BUN 25 mg/dL (7-18); BUN/Creat Ratio 12.9 RATIO (10-20); Calcium,Total 8.1 mg/dL (8.5-10.1); Chloride 106 mmol/L (98-107); Creatinine, Serum 1.94 mg/dL (0.70-1.30); EST Glomerular Filtration Rate 36 mL/min (>60); Est Glom Filt Rate - Afr Amer 44 mL/min (>60); Glucose 87 mg/dL (74-106); Potassium 4.7 mmol/L (3.5-5.1); Sodium Level 139 mmol/L (136-145)
[2021-03-29] MEDS: Allopurinol 300 MG Tablet PO (08:53)
[2021-03-29] MEDS: Lisinopril 10 MG Tablet PO (08:53)
[2021-03-29] MEDS: Metoprolol Tartrate 50 MG Tablet PO ×2 (08:54→21:24)
[2021-03-29] MEDS: Multivitamins,Therapeutic Tablet 1 TABLET PO (08:54)
[2021-03-29] MEDS: Ciprofloxacin 400 MG/200 ML BAG 200 MG IV (09:17)
--- NOTE | 2021-03-29 09:46 | PN.URO_ITS ---
Subjective Subjective: doing well needs to move his BM, h/h stable,, Creatinine down some Objective Data Objective Data Vital Signs: Vital Signs Temp Pulse Resp BP Pulse Ox 98.7 F 87 20 H 153/57 H 98 03/29/21 08:30 03/29/21 08:54 03/29/21 08:30 03/29/21 08:30 03/29/21 08:30 Oxygen Delivery Method Room Air Weight: 101.6 kg Body Mass Index (BMI) 34.0 Intake & Output: Intake and Output for Last 24 Hours 03/27/21 03/28/21 03/29/21 23:59 23:59 23:59 Intake Total 252.5 / 752.5 2217.5 / 2217.5 Output Total 1100 / 1100 Balance 252.5 / 52.5 1117.5 / 1117.5 Lab / Micro Data Result Diagrams: 03/29/21 05:20 03/29/21 05:20 Labs: Laboratory Results - last 24 hr 03/28/21 03/28/21 03/29/21 15:30 15:30 05:20 WBC 16.7 H 11.9 H RBC 4.56 L 4.01 L Hgb 13.9 12.1 L Hct 42.0 38.3 L MCV 92.1 95.5 H MCH 30.5 30.2 MCHC 33.1 31.6 L RDW Std Deviation 45.1 H 48.0 H RDW Coeff of Demar 13.3 13.7 Plt Count 261 204 MPV 9.5 10.2 Immature Gran % (Auto) 0.500 Neut % (Auto) 78.9 H Lymph % (Auto) 10.2 L [place] % (Auto) 10.1 H Eos % (Auto) 0.1 Baso % (Auto) 0.2 Absolute Neuts (auto) 13.2 H Absolute Lymphs (auto) 1.71 Nucleated RBC % 0 Differential Comment SCANNED Diff Path Review May foll Sodium 138 Potassium 4.5 Chloride 108 H Carbon Dioxide 25.0 Anion Gap 5 BUN 24 H Creatinine 2.04 H Estim Creat Clear Calc 31.67 Est GFR (MDRD) Af Amer 42 L Est GFR (MDRD) Non-Af 34 L BUN/Creatinine Ratio 11.8 Glucose 117 H Calcium 8.8 03/29/21 05:20 WBC RBC Hgb Hct MCV MCH MCHC RDW Std Deviation RDW Coeff of Demar Plt Count MPV Immature Gran % (Auto) Neut % (Auto) Lymph % (Auto) [place] % (Auto) Eos % (Auto) Baso % (Auto) Absolute Neuts (auto) Absolute Lymphs (auto) Nucleated RBC % Differential Comment Diff Path Review Sodium 139 Potassium 4.7 Chloride 106 Carbon Dioxide 28.0 Anion Gap 5 BUN 25 H Creatinine 1.94 H Estim Creat Clear Calc 33.30 Est GFR (MDRD) Af Amer 44 L Est GFR (MDRD) Non-Af 36 L BUN/Creatinine Ratio 12.9 Glucose 87 Calcium 8.1 L Radiography Diagnostic Testing: Radiology Impression Abdomen/Pelvis CT 03/28/21 16:38 IMPRESSION: Mild to moderate left hydronephrosis with high density material in the left extrarenal pelvis, most likely blood clot. There are postsurgical changes status post left double-J NU stent placement which appears to be in good positioning. Multiple left-sided nonobstructive calculi, largest measuring 1.3 cm. Electronically Signed: King Clayton MD at 17:34 EDT Tel , Service support , Physical Exam Const alert and oriented x3 General Appearance: cooperative HEENT normocephalic, head/scalp atraumatic, EAC's normal and TM's normal bilaterally Eyes PERRL and EOMs intact bilaterally Pupil: sluggish Neck no lymphadenopathy, supple and no JVD General: trachea midline Lymph Lymphatic: no lymphadenopathy noted, lymphedema and lymphadenopathy Resp normal respiratory effort, normal air movement and clear to auscultation bilaterally Cardio regular rate, regular rhythm and peripheral pulses 2+ throughout GI soft to palpation, non-tender and non-distended Extremity normal capillary refill and no clubbing, cyanosis or edema General Extremity: no tenderness to palpation of joints or extremities Skin no rashes or lesions noted General Skin Exam: turgor normal Lesions: no lesions Rashes: no rashes Neuro CN's II-XII intact bilaterally Speech: speech normal Motor Exam: strength 5/5 throughout; Negative for general weakness Psych thought process normal, cooperative and affect normal Appearance: appropriate Assessment & Plan Assessment/Plan (1) Kidney calculi: PLAN: monitor h/h , slow IV Fluids stool softeners may be home tomorrow is no more severe pain and stable d/c dixon today
[2021-03-29] MEDS: Senna Tablet 2 TABLET PO ×2 (11:45→21:24)
[2021-03-29] MEDS: Acetaminophen 500 MG Tablet PO ×3 (13:30→22:54)
[2021-03-29] MEDS: Atorvastatin Calcium 40 MG Tablet PO (21:23)
[2021-03-29] MEDS: 0.9% Normal Saline 1,000 ML 75 ML IV (22:54)
[2021-03-30 02:58] VITALS: BP 159/76; PULSE 72; RESP 16; TEMP 36.8; O2SAT 94
[2021-03-30] MEDS: Acetaminophen 500 MG Tablet PO (04:46)
--- NOTE | 2021-03-30 04:46 | NURSING ---
Pt reports passing flatus, denies having BM. Prune juice provided at this time.
[2021-03-30 07:23] LABS: Hemoglobin 11.8 g/dL (13.0-16.5); Mean Corp Hgb Conc 31.9 g/dL (32-36); Mean Corpuscular Hgb 30.1 pg (27.0-32.0); Mean Corpuscular Volume 94.4 fL (80-94); Mean Platelet Vol. 10.1 fl (6.2-12.0); Platelet Count 195 K/mm3 (150-450); RBC Distribution Width CV 13.4 % (11.6-14.6); RBC Distribution Width SD 46.5 fl (35.1-43.9); Red Blood Count 3.92 M/mm3 (4.6-6.2); White Blood Count 12.8 K/mm3 (4.4-11.0)
--- NOTE | 2021-03-30 07:30 | PCM.DC ---
Discharge Instructions Diet Discharge Diet: No restrictions Activity Discharge Activity: Return to Normal Activity and May not drive while taking narcotic pain medications. Dressing / Incision Call your doctor if you observe: Fever of 101 or Higher Follow Up Care Please Follow Up With: Randal Henderson MD When: Call [phone] for an appointment Test Results: Test results from this visit will be discussed in further detail at your follow-up appointment, if applicable. Discharge Plan Admission Admit Date/Time: 03/29/21 08:23 Primary Reason for Your Visit: POST OP kidney hematoma Attending Provider: Randal Henderson Primary Care Provider: Sonny Duncan Discharge Orders/Prescriptions Prescriptions: Continued multivitamin 1 EACH tablet 1 each PO DAILY RF: 0 atorvastatin 80 MG tablet 40 mg PO QHS RF: 0 lisinopril 10 MG tablet 10 mg PO DAILY RF: 0 metoprolol tartrate 50 MG tablet 50 mg PO BID RF: 0 allopurinol 300 MG tablet 300 mg PO DAILY RF: 0 omega-3 fatty acids-fish oil 1 EACH capsule 1 each PO DAILY RF: 0 cholecalciferol (vitamin D3) 2,000 UNIT capsule 2,000 unit PO DAILY RF: 0 ciprofloxacin HCl 500 MG tablet 500 mg PO BID Qty: 6 RF: 0 Held clopidogrel 75 MG tablet 75 mg PO DAILY RF: 0 Hold Instructions: Resume on 04/12/21. aspirin 81 MG tablet,chewable 162 mg PO DAILY@0800 RF: 0 Hold Instructions: Resume on 04/12/21. Referrals / Follow Up: Sonny Duncan MD [Primary Care Provider] -
--- NOTE | 2021-03-30 07:30 | PCM.DC.BLA ---
Discharge Summary Date of Admission: 03/28/21 Date of Discharge: 03/30/21 Summary: Patient was admitted to the hospital status post treatment for kidney stone with a hematoma within the renal pelvis. He has a stent in place catheters been removed his pain is resolved controlled with Tylenol the hematoma will resolve on its own we will leave the stent in place he is can go home today with a stent in place Avalos catheter is has been urinating okay and he is moving his bowels. Meaningful Use Info Meaningful Use Diagnoses (Choose all that apply): None applicable Discharge Plan Admission Admit Date/Time: 03/29/21 08:23 Primary Reason for Your Visit: POST OP kidney hematoma Attending Provider: Randal Henderson Primary Care Provider: Sonny Duncan Discharge Orders/Prescriptions Prescriptions: Continued multivitamin 1 EACH tablet 1 each PO DAILY RF: 0 atorvastatin 80 MG tablet 40 mg PO QHS RF: 0 lisinopril 10 MG tablet 10 mg PO DAILY RF: 0 metoprolol tartrate 50 MG tablet 50 mg PO BID RF: 0 allopurinol 300 MG tablet 300 mg PO DAILY RF: 0 omega-3 fatty acids-fish oil 1 EACH capsule 1 each PO DAILY RF: 0 cholecalciferol (vitamin D3) 2,000 UNIT capsule 2,000 unit PO DAILY RF: 0 ciprofloxacin HCl 500 MG tablet 500 mg PO BID Qty: 6 RF: 0 Held clopidogrel 75 MG tablet 75 mg PO DAILY RF: 0 Hold Instructions: Resume on 04/12/21. aspirin 81 MG tablet,chewable 162 mg PO DAILY@0800 RF: 0 Hold Instructions: Resume on 04/12/21. Referrals / Follow Up: Sonny Duncan MD [Primary Care Provider] -
[2021-03-30 07:52] VITALS: BP 156/75; PULSE 81; RESP 18; TEMP 36.8; O2SAT 96
[2021-03-30 07:55] VITALS: BP 156/75; PULSE 81
[2021-03-30 07:55] LABS: Anion Gap 4 (5-15); BUN 20 mg/dL (7-18); BUN/Creat Ratio 11.4 RATIO (10-20); Calcium,Total 8.6 mg/dL (8.5-10.1); Chloride 108 mmol/L (98-107); Creatinine, Serum 1.76 mg/dL (0.70-1.30); EST Glomerular Filtration Rate 41 mL/min (>60); Est Glom Filt Rate - Afr Amer 49 mL/min (>60); Glucose 145 mg/dL (74-106); Potassium 4.2 mmol/L (3.5-5.1); Sodium Level 138 mmol/L (136-145)
[2021-03-30] MEDS: Metoprolol Tartrate 50 MG Tablet PO (07:55)
[2021-03-30] MEDS: Multivitamins,Therapeutic Tablet 1 TABLET PO (07:55)
[2021-03-30] MEDS: Senna Tablet 2 TABLET PO (07:55)
[2021-03-30] MEDS: Allopurinol 300 MG Tablet PO (07:56)
[2021-03-30] MEDS: Lisinopril 10 MG Tablet PO (07:56)
[2021-03-30 13:28] LABS: Pathologist Review Reviewed
[2021-03-31] MEDS: 0.9% Normal Saline 1,000 ML 75 ML IV (15:42)
== END 2021-03-30 08:09 | disposition home or self-care (01) ==
LOC: ED 18:01 → MS3 03-29 09:23
PROVIDERS: Admitting Provider Urology; Emergency Provider Emergency Medicine; PCP Family Medicine; Visit Provider Urology
DX: N99.840 Postprocedural hematoma of a genitourinary system organ or structure following a genitourinary system procedure (principal); Y83.8 Other surgical procedures as the cause of abnormal reaction of the patient, or of later complication, without mention of misadventure at the time of the procedure; N20.0 Calculus of kidney; I25.2 Old myocardial infarction; Z79.02 Long term (current) use of antithrombotics/antiplatelets; Z79.899 Other long term (current) drug therapy; Z79.82 Long term (current) use of aspirin; Z87.891 Personal history of nicotine dependence; Z95.1 Presence of aortocoronary bypass graft
CPT/HCPCS: 36415; 74176; 80048; 85025; 85027; 96361; 96365; 96366; 96375; 97802; 99218; 99251; 99284; J7030; A4216; G0378; G0463; J0744; J2405

== ENCOUNTER → 2022-05-27 | Outpatient (CLI) | payer MEDICARE, OTHER, SELFPAY ==
--- NOTE | 2022-05-27 09:58 | RAD_ITS ---
EXAM: XR ABDOMEN, 1 VIEW CLINICAL INDICATION: CALCULUS OF KIDNEY TECHNIQUE: Frontal supine view of the abdomen/pelvis. This report was created using [employer] report generation technology. COMPARISON: XR Abdomen dated 03/19/2021 FINDINGS: LOWER THORAX: No acute pathology. GASTROINTESTINAL TRACT: Normal bowel gas pattern. ORGANS: Small stone noted within the upper pole left kidney. Additional small stone suggested within the left renal pelvis and interpole region of the left kidney. BONES/JOINTS: No acute pathology. SOFT TISSUES: No pathological calcification. RAD/Abdomen Single View IMPRESSION: Right nephrolithiasis. Electronically Signed: Toribio Stephen MD at 12:15 EDT ,
[2022-05-27 11:15] LABS: PSA,Total - Annual Screen 2.05 ng/mL (0.00-4.00)
== END | disposition home or self-care (01) ==
LOC: LAB 09:43
PROVIDERS: PCP Family Medicine; Referring Provider Urology; Visit Provider Urology
DX: N20.0 Calculus of kidney (principal); Z12.5 Encounter for screening for malignant neoplasm of prostate
CPT/HCPCS: 36415; 74018; 84153; G0103

== ENCOUNTER → 2022-08-13 | Outpatient (CLI) | payer MEDICARE, OTHER, SELFPAY ==
--- NOTE | 2022-08-13 06:04 | ECHOCS_ITS ---
Version 2 Reason For Study: CABG Procedure This was a 2D Doppler, Color Flow transthoracic echocardiogram. Technically difficult study, contrast used. Patient had a reaction to Definity, DO NOT USE in future. Exam performed in department. Left Ventricle Normal LV size. Left ventricular systolic function is normal. The estimated ejection fraction is 60 %. Stage 1 diastolic dysfunction. No regional wall motion abnormalities noted. Right Ventricle Normal RV size. Normal systolic function. Atria Normal left atrium. Normal right atrium. Mitral Valve Normal mitral valve. Tricuspid Valve Normal tricuspid valve. Aortic Valve The aortic valve is not well visualized. Pulmonic Valve The pulmonic valve is not well visualized. Great Vessels Normal aortic root. The pulmonary artery is normal size. Normal inferior vena cava. Pericardium/Pleural No pericardial effusion. Medication 20 gauge I.V. with prn adaptor inserted into right arm. Diluted definity 2ml given slow IV push to enhance endocardial definition. REACTION TO DEFINITY*DO NOT USE*. MMode/2D Measurements & Calculations LVIDd: 4.4 cm IVSd: 0.85 cm Ao root diam: 3.8 cm LVIDs: 3.0 cm LVPWd: 0.90 cm LA dimension: 3.6 cm FS: 33.3 % LAV(MOD-bp): 46.3 ml LA A4 area: 16.0 cm2 RA A4 area: 13.1 cm2 LAV(MOD-bp) Indexed: 21.8 ml/m2 LAV(MOD-sp2): 51.3 ml LAV(MOD-sp4): 39.1 ml Time Measurements MV dec time: 0.19 sec Doppler Measurements & Calculations MV E max star: 58.4 cm/sec Lat Peak E' Star: 8.4 cm/sec Med Peak E' Star: 9.5 cm/sec MV A max star: 78.5 cm/sec E/E' lat: 7.0 E/E' med: 6.1 MV E/A: 0.74 MV V2 max: 79.7 cm/sec MV P1/2t max star: 60.6 cm/sec Ao V2 max: 113.6 cm/sec MV max P.5 mmHg MV P1/2t: 60.3 msec Ao max P.2 mmHg MV V2 mean: 40.8 cm/sec MV dec slope: 294.1 cm/sec2 Ao V2 mean: 79.9 cm/sec MV mean P.81 mmHg Ao mean P.9 mmHg MV V2 VTI: 25.1 cm MVA(P1/2t): 3.6 cm2 Ao V2 VTI: 27.1 cm LV V1 max: 95.6 cm/sec PA V2 max: 102.5 cm/sec LV V1 max P.7 mmHg LV V1 mean P.9 mmHg LV V1 mean: 64.3 cm/sec LV V1 VTI: 20.8 cm ECHO/Echo Complete W/ Contrast Interpretation Summary Normal LV size. Left ventricular systolic function is normal. The estimated ejection fraction is 60 %. Stage 1 diastolic dysfunction. Contrast injection was performed. Ordering Physician: Chaz Mejia Referring Physician: TATUM LÓPEZ Performed By: Christiano Armstrong RCS
--- NOTE | 2022-08-13 17:06 | STRESSREP ---
Stress Test Report Exercise myocardial perfusion stress test. 71-year-old man with a history of coronary artery disease status post coronary bypass surgery. Stress protocol: Resting EKG demonstrates normal sinus rhythm with a rate of 64 bpm normal intervals are noted. The patient exercised according to the regular Prince protocol for a total duration of 8 minutes completing 2 minutes into stage III of the Prince protocol. The maximum heart rate attained was 142 bpm which was 96% of max impacted heart rate the maximum workload was noted to be 10.1 metabolic equivalents. At rest there were no ST or T wave changes noted to suggest ischemia and episode of ventricular couplet was noted. At peak exercise there was upsloping ST depression of approximately 0.5 mm in lead II and 0.75 mm noted in lead V5 and V6. [address] depression were noted in aVF but during recovery there was rapid return to normal. No clinical angina was noted. The peak blood pressure was 210/70 mmHg which was hypertensive response to exercise. Myocardial perfusion protocol. 14.6 mCi of technetium 99m sestamibi was injected at rest. The patient exercised according to regular Prince protocol for total duration of 8 minutes and at peak exercise 44.9 mCi of technetium 99m sestamibi was injected stress images were obtained stress and rest images were reconstructed and compared in the short axis vertical long and horizontal long axis. Gated images were also obtained. Perfusion SPECT analysis: Review of the stress images demonstrate normal uptake of tracer noted in all areas of the myocardium. The resting images similar demonstrate normal uptake of tracer noted in all areas of the myocardium. No reversibility is noted to suggest ischemia and no previous infarct is noted. Gated SPECT analysis: The gated ejection fraction is 67%. Conclusion: Normal exercise myocardial perfusion stress test at a high workload. Preserved ejection fraction.
== END | disposition home or self-care (01) ==
PROVIDERS: PCP Family Medicine; Referring Provider Internal Medicine Cardiovascular Disease; Visit Provider Internal Medicine Cardiovascular Disease
DX: I25.10 Atherosclerotic heart disease of native coronary artery without angina pectoris (principal); Z95.1 Presence of aortocoronary bypass graft
CPT/HCPCS: 78452; 93017; 93306; A9500; Q9957; A4216; C8929

== ENCOUNTER → 2024-06-14 | Outpatient (CLI) | payer MEDICARE, OTHER, SELFPAY ==
[2024-06-14 16:55] LABS: PSA,Total - Annual Screen 2.32 ng/mL (0.00-4.00)
== END | disposition home or self-care (01) ==
PROVIDERS: PCP Family Medicine; Referring Provider Urology; Visit Provider Urology
DX: Z12.5 Encounter for screening for malignant neoplasm of prostate (principal)
CPT/HCPCS: 36415; 84153; G0103

== ENCOUNTER 2024-10-09 13:36 | Outpatient (CLI) | payer OTHER, SELFPAY ==
--- NOTE | 2024-10-09 13:44 | ECHOD_ITS ---
Reason For Study: Ischemic Heart Disease Procedure This was a 2D Doppler, Color Flow transthoracic echocardiogram. Technically difficult study, No Definity due to previous reaction. Exam performed portable in patient room. Left Ventricle Normal LV size. Left ventricular systolic function is normal. The left ventricular ejection fraction is 60 %. Stage 1 diastolic dysfunction. No regional wall motion abnormalities noted. Right Ventricle Normal RV size. Normal systolic function. Atria Normal left atrium. Normal right atrium. Mitral Valve Normal mitral valve. Tricuspid Valve Normal tricuspid valve. Aortic Valve Trisinus/trileaflet aortic valve. Pulmonic Valve Normal pulmonic valve. Great Vessels Normal aortic root. The pulmonary artery is normal size. Normal inferior vena cava. Pericardium/Pleural No pericardial effusion. MMode/2D Measurements & Calculations LVIDd: 4.8 cm IVSd: 1.0 cm LVOT diam: 2.0 cm LVIDs: 3.3 cm LVPWd: 0.92 cm LVOT area: 3.1 cm2 RVDd: 3.6 cm FS: 31.5 % Ao root diam: 3.6 cm asc Aorta Diam: 3.7 cm LAV(MOD-bp): 30.9 ml LA dimension: 4.0 cm LAV(MOD-bp) Indexed: 14.3 ml/m2 LAV(MOD-sp2): 23.0 ml LAV(MOD-sp4): 37.1 ml TAPSE: 1.2 cm LA A4 area: 15.0 cm2 RA A4 area: 13.8 cm2 Time Measurements MV dec time: 0.27 sec Doppler Measurements & Calculations MV E max star: 60.4 cm/sec Lat Peak E' Star: 12.1 cm/sec Med Peak E' Star: 9.9 cm/sec MV A max star: 89.4 cm/sec E/E' lat: 5.0 E/E' med: 6.1 MV E/A: 0.67 MV V2 max: 97.6 cm/sec MV P1/2t max star: 79.7 cm/sec Ao V2 max: 109.5 cm/sec MV max P.8 mmHg MV P1/2t: 96.8 msec Ao max P.8 mmHg MV V2 mean: 48.8 cm/sec MV dec slope: 241.3 cm/sec2 Ao V2 mean: 81.3 cm/sec MV mean P.2 mmHg Ao mean P.8 mmHg MV V2 VTI: 32.3 cm MVA(P1/2t): 2.3 cm2 Ao V2 VTI: 24.1 cm MVA(VTI): 2.1 cm2 AV (velocity ratio): 0.89 PRANEETH(I,D): 2.8 cm2 PRANEETH(V,D): 2.7 cm2 LV V1 max: 95.7 cm/sec SV(LVOT): 66.9 ml PA V2 max: 94.0 cm/sec LV V1 max P.7 mmHg LV V1 mean P.9 mmHg LV V1 mean: 64.5 cm/sec LV V1 VTI: 21.6 cm ECHO/Echo Complete Interpretation Summary Normal LV size. Left ventricular systolic function is normal. The left ventricular ejection fraction is 60 %. Stage 1 diastolic dysfunction. Ordering Physician: Oumar Vogel Referring Physician: Oumar Vogel Performed By: Christiano Love and Student
== END 2024-10-09 23:59 | disposition home or self-care (01) ==
LOC: CVS 13:39
PROVIDERS: PCP Family Medicine; Referring Provider Chiropractor; Visit Provider Chiropractor
DX: I25.9 Chronic ischemic heart disease, unspecified (principal)
CPT/HCPCS: 93306

== ENCOUNTER 2024-12-29 06:07 | Emergency (ER) | payer MEDICARE, OTHER, SELFPAY ==
[2024-12-29] VITALS (9 sets, daily range): BP systolic 117–177; BP diastolic 59–78; PULSE 66–77; RESP 17–20; TEMP 36.8–39.2; O2SAT 92–98; BMI 35.4
--- NOTE | 2024-12-29 06:38 | EKG12_ITS ---
Test Reason : SYNCOPE Blood Pressure : */* mmHG Vent. Rate : 73 BPM Atrial Rate : 73 BPM P-R Int : 180 ms QRS Dur : 114 ms QT Int : 368 ms P-R-T Axes : 69 38 47 degrees QTcB Int : 405 ms Normal sinus rhythm Right bundle branch block Abnormal ECG Confirmed by GILBERT DIANA MD ([id number]), supervising film or videotape editor LISA SERRA ([id number]) on 12/31/2024 6:30:19 AM Referred By: Confirmed By: GILBERT DIANA MD
--- NOTE | 2024-12-29 06:38 | CT_ITS ---
PROCEDURE: Noncontrast CT of the brain. REASON FOR EXAM: Syncope TECHNIQUE: Contiguous unenhanced axial CT images were obtained through the brain. Sagittal and coronal reformats were created. COMPARISON: None available. FINDINGS: Bones of the calvarium are intact. Paranasal sinuses and mastoid air cells are clear. Included extracranial soft tissues unremarkable. Prominence of the cortical sulci and ventricular system, compatible with mild/moderate brain parenchymal atrophy. No extra-axial fluid collection or midline shift. The cox-white matter differentiation is maintained. No acute intracranial hemorrhage. Basilar cisterns are clear. No gross cerebellopontine angle mass lesion. Mild patchy areas of decreased attenuation in the deep/periventricular white matter structures. CT/Brain/Head without Contrast IMPRESSION: No definite acute intracranial abnormality. Mild/moderate brain parenchymal at rophy and mild probable chronic small-vessel ischemic changes. If there are persistent symptoms or clinical concern, follow-up MRI or CT brain in 12-24 hours may be considered. One or more dose reduction techniques were used (e.g., Automated exposure contr ol, adjustment of the mA and/or kV according to patient size, use of iterative reconstruction technique). Reading Location: [facility]
[2024-12-29 07:08] LABS: Absolute Lymphocyte Count 0.52 X10^3/uL (0.83-4.51); Basophil# 0.03 X10^3/uL; Basophil% 0.5 % (0-1); Eosinophil# 0.02 X10^3/uL; Eosinophils% 0.3 % (0-5); Hematocrit 41.6 % (40-54); Lymphocyte # 0.52 X10^3/ul (0.83-4.51); Lymphocyte % 8.2 % (19-41); Mean Corp Hgb Conc 33.7 g/dL (32-36); Mean Corpuscular Hgb 29.9 pg (27.0-32.0); Mean Corpuscular Volume 88.9 fL (80-94); Mean Platelet Vol. 9.8 fl (6.2-12.0); Monocyte% 12.6 % (0-10); NRBC Flagged by Analyzer 0 % (0-5); Neutrophil # 4.97 X10^3/uL (2.7-7.7); Neutrophil % 77.9 % (47-70); POSITIVE DIFFERENTIAL YES; Platelet Count 189 K/mm3 (150-450); RBC Distribution Width SD 42.6 fl (35.1-43.9); Red Blood Count 4.68 M/mm3 (4.6-6.2); White Blood Count 6.4 K/mm3 (4.4-11.0)
--- NOTE | 2024-12-29 07:10 | RAD_ITS ---
PROCEDURE: PA and lateral chest radiographs, two views REASON FOR EXAM: Syncope TECHNIQUE: Single frontal image including the chest and abdomen. COMPARISON: None. FINDINGS: The cardiomediastinal silhouette is within normal limits. Sternotomy wires are present. The bones are osteopenic with degenerative changes in the spine. Age-indeterminate mild height anterior wedging of a lower thoracic vertebral body on the lateral view. The lungs are hyperinflated. No focal airspace consolidation, pneumothorax, or pleural effusion. RAD/Chest PA and Lateral IMPRESSION: Pulmonary hyperinflation. No acute cardiopulmonary process is demonstrated. Prior median sternotomy. Reading Location: [facility]
[2024-12-29] MEDS: 0.9% Normal Saline (1000mL) 1,000 ML 999 ML IV ×2 (07:20→08:23)
--- NOTE | 2024-12-29 07:21 | EDS_ITS ---
HPI History of Present Illness Chief Complaint: Syncope Informant: patient and spouse/S.O. Narrative Narrative: Patient is a 74-year-old male with past medical history of hypertension hyperlipidemia and coronary artery disease. He states that yesterday he began w ith congestion and cough. He states that he has not had a fever however and he denies any known sick contact. He reports that this morning he got up as he normally does and was walking to the kitchen when the next thing he remembers is he was waking up on the kitchen floor. reports she heard a thud and after a few minutes went to check on him and found him unresponsive on the kitchen floor and he appeared pale and diaphoretic. She denies witnessing any type of seizure activity and patient denies any history of seizure disorder. However she states he seems slightly confused and was simply moaning for a minute or 2. The patient states he does not remember feeling palpitations or a slow or fast heart rate. He states his only new medication was the induction of Coricidin HBP yesterday. He denies any recent bouts of vomiting or diarrhea. 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 Wears hearing aid in both ears Cancer Former smoker Kidney calculi Kidney stones Home Medications ?Medication ?Instructions ?Recorded ?Last Taken ?Type allopurinol 300 mg tablet 300 mg PO DAILY gout 1 03/28/21 05:00 History aspirin 81 mg chewable tablet 81 mg PO DAILY@0800 hear t health 03/06/21 03/28/21 05:00 History cholecalciferol (vitamin D3) 50 2,000 unit PO DAILY wu pplement 03/06/21 03/28/21 05:00 History mcg (2,000 unit) capsule clopidogrel 75 mg tablet 75 mg PO DAILY blood thinner 03/06/21 03/21/21 05:00 History metoprolol tartrate 50 mg tablet 50 mg PO BID blood pr essure 03/06/21 03/28/21 05:00 History multivitamin 1 each PO DAILY supplement 0 03/06/21 03/28/21 05:00 History atorvastatin 80 mg tablet 80 mg PO QHS cholesterol Unknown History hydrochlorothiazide 12.5 mg tablet 25 mg PO DAILY 07/22 04/12 Unknown History amlodipine 5 mg tablet 5 mg PO BID patient get this med 10/16/24 Unknown [facility] tabs omega 0-hik-aci-fish oil 300 1 cap PO DAILY 12/29/24 U nknown History mg-1,000 mg capsule (Fish Oil) Allergy/AdvReac Type Severity Reaction Status Date / Time No Known Allergies Allergy Verified 12/29/24 06:09 Family History Father Myocardial infarction, Onset Age: 47 CAD (coronary artery disease) Surgical History History of left heart catheterization (09/18/12) History of coronary artery stent placement (07/16/06) H/O coronary artery bypass surgery (09/28/12) History of lithotripsy Social History Smoking Status: Former smoker ROS ROS ED Constitutional Constitutional ED: Denies chills or fever(s) Eyes Eyes: Denies change in vision ENT ENT ED: Reports rhinorrhea and sore throat Cardiovascular Cardiovascular: Reports other Details: Positive syncope ; Denies chest pain, palpitations or racing heartbeat Respiratory/Chest Respiratory/Chest: Reports cough; Denies dyspnea Gastrointestinal Gastrointestinal: Denies abdominal pain, diarrhea, nausea or vomiting Genitourinary Genitourinary ED: Denies dysuria Musculoskeletal Musculoskeletal: Denies myalgias Integumentary Denies rash Neurologic Neurologic: Denies headache(s), paresthesias or weakness Hematologic/Lymphatic Hematologic/Lymphatic: Reports easy bleeding and easy bruising EXAM Physical Exam Const Vital Signs: 12/29/24 06:10 12/29/24 06:15 12/29/24 06:16 Temperature 98.6 F 98.6 F Temperature Source Oral Oral Pulse Rate 73 73 Pulse Rate [Lying] Pulse Rate [Sitting (for 1 minute prior to obtaining)] Pulse Rate [Standing (for 1 minute prior to obtaining)] Respiratory Rate 18 18 Respiratory Effort Normal Non-Labored Respiratory Pattern Normal Blood Pressure 150/65 H 136/60 H Blood Pressure [Lying] Blood Pressure [Sitting (for 1 minute prior to obtaining)] Blood Pressure [Standing (for 1 minute prior to obtaining)] Blood Pressure Mean 93 85 Blood Pressure Mean [Lying] Blood Pressure Mean [Sitting (for 1 minute prior to obtaining)] Blood Pressure Mean [Standing (for 1 minute prior to obtaining)] Pulse Ox 96 96 Oxygen Delivery Method Room Air Room Air 12/29/24 06:51 12/29/24 07:00 12/29/24 07:15 Temperature 102.6 F H 102.4 F H Temperature Source Oral Oral Pulse Rate 74 Pulse Rate [Lying] 74 Pulse Rate [Sitting (for 1 minute prior to obtaining)] 76 Pulse Rate [Standing (for 1 minute prior to obtaining)] 72 Respiratory Rate 20 H Respiratory Effort Respiratory Pattern Blood Pressure 177/70 H Blood Pressure [Lying] 161/59 H Blood Pressure [Sitting (for 1 minute prior to obtaining)] 169/75 H Blood Pressure [Standing (for 1 minute prior to obtaining)] 157/71 H Blood Pressure Mean 105 Blood Pressure Mean [Lying] 93 Blood Pressure Mean [Sitting (for 1 minute prior to obtaining)] 106 Blood Pressure Mean [Standing (for 1 minute prior to obtaining)] 99 Pulse Ox 96 Oxygen Delivery Method Room Air Positive well nourished, well developed and obese General Appearance ED: well developed; Negative for pallor Nutritional Appearance: obese HEENT Reports dry mucous membranes HEENT Narrative: There is cobblestoning noted in the posterior pharynx consistent with sinus drainage No tongue or lip swelling no oral lesions Mucous membranes are mildly dry and tacky There is an abrasion to the lateral aspect of the left sided tongue but patient states that he bit his tongue eating food yesterday. There is a 1 x 2 hematoma along the right side occipital portion of the scalp without signs of depressed or basilar skull fracture Mouth ED: Yes dry mucous membranes Mouth: dry mucous membranes Eyes PERRL and EOMs intact bilaterally General Eye ED: Negative for scleral icterus Neck supple and no JVD Neck Narrative: No nuchal rigidity or meningeal signs No bony deformity or step-off of the cervical spine no midline tenderness to palpation Chest Wall palpation of chest normal Resp normal respiratory effort Resp Narrative: Breath sounds are diminished throughout with faint rhonchi noted in bilateral bases but no signs of respiratory distress Cardio regular rate and regular rhythm Rate: other Other Details: Heart is regular rate and rhythm Radial and carotid pulses are equal and symmetric GI normal to inspection, nondistended, normoactive bowel sounds, non-tender, non- distended and no masses GI Narrative: No voluntary guarding or rigidity or pulsatile mass Auscultation: normoactive bowel sounds Palpation: soft Back/Spine Back/Spine Narrative: No bony deformity or step-off of the thoracic or lumbar spine no midline tenderness to palpation Extremity normal to inspection Extremity Narrative: Pelvis is stable there is no shortening or external rotation of either lower extremity No signs of long bone injury There is +12 pitting edema to the bilateral lower extremities that is equal and symmetrical with negative Homans' sign bilaterally Neuro oriented x3, CN's II-XII intact bilaterally and no sensory deficits noted Neuro Narrative: GCS of 15 Cranial nerves II through XII are grossly intact without focal neurologic deficit No pronator drift no dysmetria no truncal ataxia NIH stroke scale score of 0 Sensorium / Orientation: alert Motor Exam: strength 5/5 throughout Psych mental status grossly normal Skin no rashes or lesions noted and No skin turgor normal Skin Narrative: Hematoma to the right occipital portion of the scalp as documented above Skin turgor is increased consistent with dehydration General Skin Exam: Negative for jaundice or pallor MDM MDM MDM Narrative Medical decision making narrative: Patient arrived to the ER slightly hypertensive but has a past medical history of this and otherwise with stable vitals. He reported a syncopal event while walking to the kitchen. Differential diagnosis is for cardiac dysrhythmia versus orthostatic syncope versus spontaneous or traumatic subarachnoid or subdural hemorrhage versus brain mass. There is concern for acute blood loss anemia acute kidney injury or electrolyte abnormality. With the patient's report of congestion and cough there is concern for COVID versus influenza versus RSV versus pneumonia. Secondary to this an EKG is obtained which revealed sinus rhythm without ischemic findings. Troponin was normal at 10 going against acute coronary syndrome. He is kept on the monitor and there was no cardiac dysrhythmia noted. Lab work revealed no leukocytosis or left shift nor were there any signs of MILAN or electrolyte abnormality. Chest x-ray revealed no acute infiltrate and head CT revealed no signs of underlying bleed or mass. Orthostatic vital signs were positive however with his diastolic blood pressure dropping from 75-59 with standing and patient did report feeling lightheaded/dizzy with this. Therefore he was given 1 L of fluid. While in the ER he did spike a fever up to 102 which would be concerning for potential viral infection such as influenza and his temperature was controlled with Tylenol. At this time the patient's response to IV hydration as well as potential viral swab are still pending. Therefore he will be signed out to the day physician Dr. Lobo. However I feel that as long as patient can stand and ambulate without recurrent dizziness that he will be safe for discharge as he is only had 1 bout of syncope and there is no signs of MILAN underlying head trauma or cardiovascular event History & Record Review Discussion w/independent historian: EMS personnel, Patient and Significant other Lab Data Attestation: I reviewed the patient's lab results. Labs: Laboratory Results - last 24 hr 12/29/24 06:50 WBC 6.4 RBC 4.68 Hgb 14.0 Hct 41.6 MCV 88.9 MCH 29.9 MCHC 33.7 RDW Std Deviation 42.6 RDW Coeff of Demar 13.0 Plt Count 189 MPV 9.8 Immature Gran % (Auto) 0.500 Neut % (Auto) 77.9 H Lymph % (Auto) 8.2 L Ray % (Auto) 12.6 H Eos % (Auto) 0.3 Baso % (Auto) 0.5 Absolute Neuts (auto) 5.0 Absolute Lymphs (auto) 0.52 L Nucleated RBC % 0 Sodium 139 Potassium 3.9 Chloride 104 Carbon Dioxide 29.0 Anion Gap 6 BUN 18 Creatinine 1.50 H Estim Creat Clear Calc 49.42 Est GFR (MDRD) Af Amer 59 L Est GFR (MDRD) Non-Af 48 L BUN/Creatinine Ratio 12.0 Glucose 112 H Calcium 8.9 Magnesium 2.0 Troponin I High Sens 10 Radiography Diagnostic Testing: Clinical Impression(s) from Imaging Studies Brain CT 12/29/24 06:38 IMPRESSION: No definite acute intracranial abnormality. Mild/moderate brain parenchymal atrophy and mild probable chronic small-vessel ischemic changes. If there are persistent symptoms or clinical concern, follow-up MRI or CT brain in 12-24 hours may be considered. One or more dose reduction techniques were used (e.g., Automated exposure control, adjustment of the mA and/or kV according to patient size, use of iterative reconstruction technique). Reading Location: [facility] Chest X-Ray 12/29/24 07:10 IMPRESSION: Pulmonary hyperinflation. No acute cardiopulmonary process is demonstrated. Prior median sternotomy. Reading Location: [facility] Chest x-ray as interpreted by the emergency medicine physician reveals no acute infiltrate pneumothorax or pleural effusion Discharge Plan Triage Chief Complaint: Syncope ED Provider: Vic Sierra Dx/Rx/DC Orders Clinical Impression: Orthostatic syncope, Essential hypertension, Influenza A Instructions: Causes of Syncope, ED Influenza (Adult) Prescriptions: No Action hydrochlorothiazide 12.5 mg tablet 25 mg PO DAILY multivitamin 1 EACH tablet 1 each PO DAILY clopidogrel 75 MG tablet 75 mg PO DAILY Patient Comments: pt states last dose 03/06/[address] Henderson's instructions metoprolol tartrate 50 MG tablet 50 mg PO BID aspirin 81 MG tablet,chewable 81 mg PO DAILY@0800 Patient Comments: pt states last dose 03/06/[address] Henderson's instructions allopurinol 300 MG tablet 300 mg PO DAILY cholecalciferol (vitamin D3) 2,000 UNIT capsule 2,000 unit PO DAILY atorvastatin 80 mg tablet 80 mg PO QHS omega 5-fos-mlm-fish oil [Fish Oil] 300-1,000 mg capsule 1 cap PO DAILY amlodipine 5 mg tablet 5 mg PO BID Qty: 120 3RF Primary Care Provider: Sonny Duncan Referrals: Sonny Duncan MD [Primary Care Provider] - Print Language: British
[2024-12-29 07:31] LABS: Anion Gap 6 (5-15); BUN 18 mg/dL (7-18); Calcium,Total 8.9 mg/dL (8.5-10.1); Chloride 104 mmol/L (98-107); EST Glomerular Filtration Rate 48 mL/min (>60); Est Glom Filt Rate - Afr Amer 59 mL/min (>60); Estimated Creatinine Clearance 49.42 ml/min; Glucose 112 mg/dL (74-106); Potassium 3.9 mmol/L (3.5-5.1); Sodium Level 139 mmol/L (136-145); Troponin-I HS 10 pg/mL (3.0-78.0)
[2024-12-29] MEDS: Acetaminophen 500 MG Tablet 1000 MG PO (07:56)
[2024-12-29] MEDS: Metoprolol Tartrate 50 MG Tablet PO (07:56)
[2024-12-29 08:30] LABS: Mucous, Urine 0 SEEN /hpf (<or=2+); White Blood Cells 0 SEEN /hpf (0-5)
[2024-12-29 08:47] LABS: Color, Urine Yellow (Yellow); Glucose, Dipstick Normal (Normal); Ketone-Dipstick Negative (Negative); Leukocyte Esterase-Dipstick Negative /ul (Negative); Nitrite-Dipstick Negative (Negative); Occult Blood-Urine Negative /ul (Negative); Protein-Dipstick 15 mg/dl (Negative); Urine Bilirubin Dipstick Negative (Negative); Urine Clarity Clear (Clear); Urine Urobilinogen 1 mg/dl (Normal); Urine pH 6.5 (5.0 - 8.0)
[2024-12-29 08:57] LABS: Bacteria 1+ /hpf (None Seen); Red Blood Cells-Urine 0 SEEN /hpf (0-5); Squamous Epithelial Cells - UA 0-5 SEEN /hpf (0-5)
== END 2024-12-29 10:39 | disposition home or self-care (01) ==
PROVIDERS: Emergency Provider Emergency Medicine; PCP Family Medicine; Visit Provider Emergency Medicine
DX: U07.1 COVID-19 (principal); R55 Syncope and collapse; J10.1 Influenza due to other identified influenza virus with other respiratory manifestations; Z87.891 Personal history of nicotine dependence; I10 Essential (primary) hypertension; I25.10 Atherosclerotic heart disease of native coronary artery without angina pectoris; E66.9 Obesity, unspecified; Z95.5 Presence of coronary angioplasty implant and graft; Z95.1 Presence of aortocoronary bypass graft; Z82.49 Family history of ischemic heart disease and other diseases of the circulatory system; E78.5 Hyperlipidemia, unspecified
CPT/HCPCS: 70450; 71046; 80048; 81001; 83735; 84484; 85025; 87631; 93005; 96360; 96361; 99285

== ENCOUNTER 2025-03-31 15:56 | Emergency (ER) | payer MEDICARE, OTHER, SELFPAY ==
[2025-03-31 15:57] VITALS: BP 149/67; PULSE 73; RESP 16; TEMP 37.1; O2SAT 96; BMI 35.0
--- NOTE | 2025-03-31 16:37 | EKG12_ITS ---
Test Reason : EDEMA Blood Pressure : */* mmHG Vent. Rate : 70 BPM Atrial Rate : 70 BPM P-R Int : 186 ms QRS Dur : 108 ms QT Int : 376 ms P-R-T Axes : 58 33 28 degrees QTcB Int : 406 ms Normal sinus rhythm Incomplete right bundle branch block Borderline ECG Confirmed by Bill Vasques ([id number]), online content editor SAMMIE FELDER ([id number]) on 04/01/2025 9:24:15 AM Referred By: Confirmed By: Bill Vasques
--- NOTE | 2025-03-31 17:05 | RAD_ITS ---
PROCEDURE: CHEST 1 VIEW (PORTABLE) 03/31/2025 REASON FOR EXAM: SOB TECHNIQUE: Frontal view of the chest. COMPARISON: 12/29/2024 FINDINGS: Hardware: Status post median sternotomy. Heart: Heart size is mildly enlarged. Lungs: Bibasilar atelectasis. No pneumothorax. No pleural effusion. No focal consolidation. Bones: The bones are unremarkable. Other: RAD/Chest 1 View (Portable) IMPRESSION: No Acute Findings. Reading Location: [facility]
[2025-03-31 17:16] LABS: Absolute Lymphocyte Count 2.36 X10^3/uL (0.83-4.51); Absolute Neutrophil Count 5.1 X10^3/uL (2.0-7.7); Basophil# 0.04 X10^3/uL; Basophil% 0.5 % (0-1); Eosinophil# 0.08 X10^3/uL; Eosinophils% 0.9 % (0-5); Hematocrit 40.1 % (40-54); Hemoglobin 13.6 g/dL (13.0-16.5); Lymphocyte # 2.36 X10^3/ul (0.83-4.51); Lymphocyte % 27.6 % (19-41); Mean Corp Hgb Conc 33.9 g/dL (32-36); Mean Corpuscular Hgb 30.8 pg (27.0-32.0); Mean Corpuscular Volume 90.9 fL (80-94); Monocyte# 0.92 X10^3/uL; Monocyte% 10.8 % (0-10); NRBC Flagged by Analyzer 0 % (0-5); Neutrophil # 5.12 X10^3/uL (2.7-7.7); Neutrophil % 59.8 % (47-70); Platelet Count 248 K/mm3 (150-450); RBC Distribution Width SD 46.7 fl (35.1-43.9); Red Blood Count 4.41 M/mm3 (4.6-6.2); White Blood Count 8.6 K/mm3 (4.4-11.0)
[2025-03-31 17:43] VITALS: BP 127/63; PULSE 72; RESP 16; O2SAT 96
[2025-03-31 17:49] LABS: ALB/GLOB Ratio 1.6 RATIO (0.9-2.4); AST(SGOT) 21 U/L (<=37); Alanine Aminotransfer ALT/SGPT 15 U/L (<=46); Alkaline Phosphatase 93 U/L (40-129); Anion Gap 11 (5-15); BUN 33 mg/dL (4-19); BUN/Creat Ratio 15.8 RATIO (10-20); Calcium,Total 9.7 mg/dL (7.6-11.0); Carbon Dioxide 25.6 mmol/L (21.0-32.0); Chloride 102 mmol/L (98-108); Creatinine, Serum 2.06 mg/dL (0.70-1.20); EST Glomerular Filtration Rate 33 (>60); Estimated Creatinine Clearance 35.75 ml/min (50-250); Globulin 2.5 g/dL (2.2-4.2); Glucose 116 mg/dL (70-99); Potassium 4.6 mmol/L (3.3-5.1); Pro- Brain NATRIURETIC PEPTIDE 162 pg/mL (<=1800); Protein, Total 6.5 g/dL (5.9-8.4); Sodium Level 139 mmol/L (133-145); Troponin T High Sensitivity 17 ng/L (<=22)
[2025-03-31 19:00] VITALS: BP 127/63; PULSE 72; RESP 16; TEMP 36.7; O2SAT 96
--- NOTE | 2025-03-31 22:39 | EX.ED.DYSGE1 ---
HPI History of Present Illness Chief Complaint: Edema Informant: patient and spouse/S.O. Onset/Context/Timing Onset: Month(s) Location: Bilateral lower extremity Current Severity: Mild Worsened by: At the end of the day Relieved by: Better in the morning Associated Symptoms Associated Symptoms: None Narrative Narrative: Patient presents for bilateral lower extremity swelling. Said this has been going on for weeks, since February. It is worse in the evening and better in the morning. He came in today because his noted this when he was wearing shorts. He has no history of this. Denies any history of congestive heart failure although he does have coronary disease. Denies any history of liver or kidney disease. Denies any history of change in dietary intake of fluids or sodium. Denies any change in medications. Denies any history of DVTs or pain in his calfs. 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 Wears hearing aid in both ears Cancer Former smoker Kidney calculi Kidney stones Home Medications ?Medication ?Instructions ?Recorded ?Last Taken ?Type allopurinol 300 mg tablet 300 mg PO DAILY gout 03/06/21 03/30/25 History aspirin 81 mg chewable tablet 81 mg PO BID heart health 03/06/21 03/31/25 History cholecalciferol (vitamin D3) 50 2,000 unit PO DAILY supplement 03/06/21 03/30/25 History mcg (2,000 unit) capsule clopidogrel 75 mg tablet 75 mg PO DAILY blood thinner 03/06/21 03/30/25 History metoprolol tartrate 50 mg tablet 50 mg PO BID blood pressure 03/06/21 03/31/25 History multivitamin 1 each PO DAILY supplement 03/06/21 03/30/25 History atorvastatin 80 mg tablet 40 mg PO QHS cholesterol 08/05/23 03/30/25 History amlodipine 5 mg tablet 5 mg PO BID patient get this med 10/16/24 03/31/25 [facility] tabs omega 2-enl-sbp-fish oil 300 1 cap PO DAILY 12/29/24 03/30/25 History mg-1,000 mg capsule (Fish Oil) hydrochlorothiazide 25 mg tablet 25 mg PO DAILY 03/31/25 03/30/25 History Allergy/AdvReac Type Severity Reaction Status Date / Time No Known Allergies Allergy Verified 03/31/25 15:57 Family History Father Myocardial infarction, Onset Age: 47 CAD (coronary artery disease) Surgical History History of left heart catheterization (09/18/12) History of coronary artery stent placement (07/16/06) H/O coronary artery bypass surgery (09/28/12) History of lithotripsy Social History Smoking Status: Former smoker ROS ROS ED Constitutional Constitutional ED: Denies chills or fever(s) Cardiovascular Cardiovascular: Denies chest pain or palpitations Respiratory/Chest Respiratory/Chest: Denies cough or dyspnea Gastrointestinal Gastrointestinal: Denies abdominal pain or constipation Musculoskeletal Musculoskeletal: Denies arthralgias, back pain or myalgias Neurologic Neurologic: Denies headache(s), paresthesias or weakness Psychiatric Psychiatric: Denies anxiety or depression Endocrine Endocrinology: Denies cold intolerance or heat intolerance Hematologic/Lymphatic Hematologic/Lymphatic: Denies easy bleeding or easy bruising Allergic/Immunologic Allergic/Immunologic ED: Denies mouth swelling, tongue swelling or urticaria EXAM Physical Exam Const Vital Signs: 03/31/25 15:57 03/31/25 16:37 03/31/25 17:08 Temperature 98.7 F Temperature Source Oral Pulse Rate 73 Respiratory Rate 16 Respiratory Effort Normal Non-Labored Respiratory Pattern Normal Blood Pressure 149/67 H Blood Pressure Mean 94 Pulse Ox 96 Oxygen Delivery Method Room Air Room Air 03/31/25 17:43 03/31/25 19:00 Temperature 98.0 F Temperature Source Pulse Rate 72 72 Respiratory Rate 16 16 Respiratory Effort Respiratory Pattern Blood Pressure 127/63 H 127/63 H Blood Pressure Mean 84 84 Pulse Ox 96 96 Oxygen Delivery Method Room Air Positive well nourished and well developed General Appearance ED: well developed HEENT Reports moist mucous membranes Eyes EOMs intact bilaterally Resp normal respiratory effort and clear to auscultation bilaterally Cardio regular rate and regular rhythm GI normal to inspection, nondistended, normoactive bowel sounds, non-tender and non-distended Extremity Extremity Narrative: Bilateral lower extremity pitting edema without tenderness, redness, or warmth Neuro oriented x3 Sensorium / Orientation: alert Motor Exam: strength 5/5 throughout Psych mental status grossly normal Skin no rashes or lesions noted, no wounds and skin turgor normal MDM MDM MDM Narrative Medical decision making narrative: Patient had an EKG that showed sinus rhythm with a right bundle branch block pattern. No sign of ischemia or infarction pattern. This was interpreted by me. Chest x-ray was interpreted by the radiologist and myself. Showed no acute process. Patient presents with peripheral pitting edema. He is not hypoxic or in respiratory distress. This is a new issue for him. He does not think it is related to the weather. His EKG, chest x-ray, troponin, BNP are all reassuring. He does have coronary disease but is not having any cardiac symptoms and does not show any other signs of CHF. He is not requiring oxygen. Liver function is good. Renal function is slightly decreased. Suspect this may be contributing. He is also taking allopurinol as he thought this was gout. Will advise him to discontinue allopurinol. Did not appear to be on any other medications that might be contributing. He has follow-up with his physician later this week. He will be discharged home. Return for any new or worsening issues. Impression #1 peripheral edema Impression #2 CKD Lab Data Labs: Laboratory Results - last 24 hr 03/31/25 16:50 WBC 8.6 RBC 4.41 L Hgb 13.6 Hct 40.1 MCV 90.9 MCH 30.8 MCHC 33.9 RDW Std Deviation 46.7 H RDW Coeff of Demar 14.0 Plt Count 248 MPV 10.0 Immature Gran % (Auto) 0.400 Neut % (Auto) 59.8 Lymph % (Auto) 27.6 [place] % (Auto) 10.8 H Eos % (Auto) 0.9 Baso % (Auto) 0.5 Absolute Neuts (auto) 5.1 Absolute Lymphs (auto) 2.36 Nucleated RBC % 0 Sodium 139 Potassium 4.6 Chloride 102 Carbon Dioxide 25.6 Anion Gap 11 BUN 33 H Creatinine 2.06 H Estim Creat Clear Calc 35.75 L Est GFR (MDRD) Non-Af 33 L BUN/Creatinine Ratio 15.8 Glucose 116 H Calcium 9.7 Total Bilirubin 0.90 AST 21 ALT 15 Alkaline Phosphatase 93 Troponin T High Sens 17 NT pro BNP II 162 Total Protein 6.5 Albumin 4.0 Globulin 2.5 Albumin/Globulin Ratio 1.6 Radiography Chest X-Ray - ED: 1 View, Read by ED Physician, Read by Radiologist, Unchanged and Normal Diagnostic Testing: Clinical Impression(s) from Imaging Studies Chest X-Ray 03/31/25 17:05 IMPRESSION: No Acute Findings. [facility] Discharge Plan Triage Chief Complaint: Edema ED Provider: Bayron Romero Dx/Rx/DC Orders Clinical Impression: Edema, peripheral, CKD (chronic kidney disease) Instructions: Kidney Disease Limiting Sodium Prescriptions: No Action multivitamin 1 EACH tablet 1 each PO DAILY clopidogrel 75 MG tablet 75 mg PO DAILY Patient Comments: pt states last dose 03/06/[address] Henderson's instructions metoprolol tartrate 50 MG tablet 50 mg PO BID aspirin 81 MG tablet,chewable 81 mg PO BID Patient Comments: pt states last dose 03/06/[address] Henderson's instructions allopurinol 300 MG tablet 300 mg PO DAILY cholecalciferol (vitamin D3) 2,000 UNIT capsule 2,000 unit PO DAILY atorvastatin 80 mg tablet 40 mg PO QHS omega 5-nvc-ihw-fish oil [Fish Oil] 300-1,000 mg capsule 1 cap PO DAILY hydrochlorothiazide 25 mg tablet 25 mg PO DAILY amlodipine 5 mg tablet 5 mg PO BID Qty: 120 3RF Primary Care Provider: Sonny Duncan Referrals: Sonny Duncan MD [Primary Care Provider] - Print Language: [place]i Disposition Disposition: Home, Self Care Discharge Date/Time: 03/31/25 19:05
== END 2025-03-31 19:05 | disposition home or self-care (01) ==
PROVIDERS: Emergency Medicine; Emergency Provider Emergency Medicine; PCP Family Medicine; Visit Provider Emergency Medicine
DX: R60.9 Edema, unspecified (principal); I25.10 Atherosclerotic heart disease of native coronary artery without angina pectoris; I12.9 Hypertensive chronic kidney disease with stage 1 through stage 4 chronic kidney disease, or unspecified chronic kidney disease; N18.9 Chronic kidney disease, unspecified; Z87.891 Personal history of nicotine dependence; I45.10 Unspecified right bundle-branch block; Z79.82 Long term (current) use of aspirin; Z95.5 Presence of coronary angioplasty implant and graft; Z95.1 Presence of aortocoronary bypass graft; J98.11 Atelectasis; R06.02 Shortness of breath
CPT/HCPCS: 71045; 80053; 83880; 84484; 85025; 93005; 99284; A4216

== ENCOUNTER → 2025-06-17 | Outpatient (CLI) | payer MEDICARE, OTHER, SELFPAY ==
[2025-06-17 09:53] LABS: PSA,Total - Annual Screen 2.67 ng/mL (0.02-4.00)
== END | disposition home or self-care (01) ==
LOC: LAB 08:12
PROVIDERS: PCP Family Medicine; Referring Provider Nurse Practitioner; Visit Provider Nurse Practitioner
DX: Z12.5 Encounter for screening for malignant neoplasm of prostate (principal)
CPT/HCPCS: 36415; 84153; G0103